=== PATIENT | female | born 1945 | race Caucasian/White ===

== ENCOUNTER 2017-12-26 10:56 | Inpatient (IN) | payer MEDICARE ==
[~2017-12-26] VITALS: Ht 157.5 cm; Wt 77.1 kg
[~2017-12-26 10:56] MED LIST: AMLO10 PO; ASPI325 PO; ATOR80 PO; DOCU100 PO; METO25 PO; Novolin R100 UNIT/M SC
[2017-12-26 11:53] LABS: Influenza A Negative (NEGATIVE); Influenza B Negative (NEGATIVE)
[2017-12-26 12:40] LABS: Chloride (POC) 98 mmol/L (98-108); Creatinine (POC) 0.9 mg/dL (0.6-1.0); Glucose (ISTAT POC) 147 mg/dL (70-99); Hemoglobin (POC) 15.3 g/dL (12.0-16.0); Potassium (POC) 3.2 mmol/L (3.5-5.5); Sodium (POC) 137 mmol/L (135-148); Total CO2 (POC) 27 mmol/L (21-32)
[2017-12-26 12:42] LABS: BASOPHILS ABSOLUTE AUTO 0.01 K/mm3 (0.00-0.23); BASOPHILS PERCENT AUTO 0 % (0-2); EOSINOPHILS ABSOLUTE AUTO 0.01 K/mm3 (0.00-0.68); EOSINOPHILS PERCENT AUTO 0 % (0-6); Hematocrit 43.6 % (33.0-51.0); Hemoglobin 15.2 g/dL (11.5-16.0); IMMATURE GRAN ABSOLUTE AUTO 0.06 K/mm3 (0.00-0.10); IMMATURE GRAN PERCENT AUTO 0 % (0-1); LYMPHOCYTES ABSOLUTE AUTO 0.64 K/mm3 (0.84-5.20); LYMPHOCYTES PERCENT AUTO 5 % (21-46); MONOCYTES ABSOLUTE AUTO 0.49 K/mm3 (0.16-1.47); MONOCYTES PERCENT AUTO 4 % (4-13); Mean Corpuscular HGB 31.7 pg (26.0-34.0); Mean Corpuscular HGB Conc 34.9 g/dL (31.5-36.5); Mean Corpuscular Volume 91 fL (80-100); Mean Platelet Volume 10.6 fL (9.1-12.4); NEUTROPHILS ABSOLUTE AUTO 12.23 K/mm3 (1.96-9.15); NEUTROPHILS PERCENT AUTO 91 % (41-73); Platelet Count 175 K/mm3 (150-400); RDW Coefficient Variation 12.6 % (11.7-14.2); RDW Standard Deviation 41.7 fL (35.1-46.3); Red Blood Cell Count 4.79 M/mm3 (3.80-5.20); White Blood Cell Count 13.44 K/mm3 (4.00-11.30)
[2017-12-26 13:05] LABS: Alanine Aminotransfer (ALT/SGP 177 U/L (12-78); Albumin, Blood 2.9 g/dL (3.4-5.0); Albumin/Globulin Ratio 0.6 (0.8-1.8); Alk Phos 115 U/L (50-136); Anion Gap 10 mmol/L (6-16); Aspartate Aminotrans (AST/SGOT 168 U/L (12-37); Bilirubin, Total 5.8 mg/dL (0.1-1.0); Blood Urea Nitrogen 17 mg/dL (8-24); CO2, Blood 27 mmol/L (21-32); Calcium, Blood 8.8 mg/dL (8.5-10.1); Chloride, Blood 99 mmol/L (98-108); Creatinine, Blood 0.85 mg/dL (0.40-1.00); Globulin, Blood 4.9 g/dL (2.2-4.0); Glomerular Filtration Rate >60 (60-); Glucose, Blood 140 mg/dL (70-99); Potassium, Blood 3.2 mmol/L (3.5-5.5); Sodium, Blood 136 mmol/L (136-145); Total Protein, Blood 7.8 g/dL (6.4-8.2)
[2017-12-26 13:19] LABS: Bicarbonate Venous 27.5 mmol/L (24.0-30.0); PCO2 Venous 32.9 mmHg (38-42); PO2 Venous 191 mmHg (38-42); pH Blood Venous 7.51 (7.34-7.37)
[2017-12-26 13:24] LABS: Source, Urine Catheter
[2017-12-26 13:25] LABS: International Normalized Ratio 1.22; Prothrombin Time Results 12.8 Sec (9.7-11.5)
[2017-12-26 13:46] LABS: Blood, Urine 5+ (Neg); Color, Urine Brown (P-Yellow); Glucose Qualitative, Urine 1+ (Neg); Ketones, Urine 1+ (Neg); Leukocyte Esterase, Urine 1+ (Neg); Nitrite, Urine Pos (Neg); Protein, Urine 3+ (Neg); Urobilinogen, Urine 4+ (Normal)
[2017-12-26 13:54] LABS: Bilirubin, Urine 2+ (Neg)
[2017-12-26 13:55] LABS: Appearance, Urine Hazy (Clear)
[2017-12-26 13:56] LABS: Bacteria Mod /hpf; Squamous Epithelial Cells Few /hpf (Few)
[2017-12-27 04:43] LABS: BASOPHILS ABSOLUTE AUTO 0.02 K/mm3 (0.00-0.23); BASOPHILS PERCENT AUTO 0 % (0-2); EOSINOPHILS ABSOLUTE AUTO 0.07 K/mm3 (0.00-0.68); EOSINOPHILS PERCENT AUTO 1 % (0-6); Hemoglobin 15.1 g/dL (11.5-16.0); IMMATURE GRAN ABSOLUTE AUTO 0.05 K/mm3 (0.00-0.10); IMMATURE GRAN PERCENT AUTO 1 % (0-1); LYMPHOCYTES ABSOLUTE AUTO 0.65 K/mm3 (0.84-5.20); LYMPHOCYTES PERCENT AUTO 6 % (21-46); MONOCYTES ABSOLUTE AUTO 0.51 K/mm3 (0.16-1.47); MONOCYTES PERCENT AUTO 5 % (4-13); Mean Corpuscular HGB 31.9 pg (26.0-34.0); Mean Corpuscular HGB Conc 35.1 g/dL (31.5-36.5); Mean Corpuscular Volume 91 fL (80-100); Mean Platelet Volume 10.6 fL (9.1-12.4); NEUTROPHILS ABSOLUTE AUTO 9.14 K/mm3 (1.96-9.15); NEUTROPHILS PERCENT AUTO 88 % (41-73); Platelet Count 192 K/mm3 (150-400); RDW Coefficient Variation 12.7 % (11.7-14.2); RDW Standard Deviation 41.7 fL (35.1-46.3); Red Blood Cell Count 4.74 M/mm3 (3.80-5.20); White Blood Cell Count 10.44 K/mm3 (4.00-11.30)
[2017-12-27 05:02] LABS: Anion Gap 8 mmol/L (6-16); Blood Urea Nitrogen 20 mg/dL (8-24); Bun/Creatinine Ratio 22.5 (12.0-20.0); CO2, Blood 28 mmol/L (21-32); Calcium, Blood 8.7 mg/dL (8.5-10.1); Chloride, Blood 101 mmol/L (98-108); Creatinine, Blood 0.89 mg/dL (0.40-1.00); Glomerular Filtration Rate >60 (60-); Glucose, Blood 156 mg/dL (70-99); Potassium, Blood 3.3 mmol/L (3.5-5.5); Sodium, Blood 137 mmol/L (136-145)
[2017-12-27 18:17] LABS: Albumin, Blood 2.4 g/dL (3.4-5.0); Albumin/Globulin Ratio 0.6 (0.8-1.8); Bilirubin, Direct 3.1 mg/dL (0.0-0.3); Bilirubin, Total 4.1 mg/dL (0.1-1.0); Globulin, Blood 3.9 g/dL (2.2-4.0); Thyroid Stimulating Hormone 1.67 uIU/mL (0.360-4.800); Total Protein, Blood 6.3 g/dL (6.4-8.2)
[2017-12-28 07:43] LABS: BASOPHILS ABSOLUTE AUTO 0.02 K/mm3 (0.00-0.23); BASOPHILS PERCENT AUTO 0 % (0-2); EOSINOPHILS ABSOLUTE AUTO 0.19 K/mm3 (0.00-0.68); EOSINOPHILS PERCENT AUTO 3 % (0-6); Hematocrit 36.8 % (33.0-51.0); Hemoglobin 12.8 g/dL (11.5-16.0); IMMATURE GRAN ABSOLUTE AUTO 0.03 K/mm3 (0.00-0.10); IMMATURE GRAN PERCENT AUTO 1 % (0-1); LYMPHOCYTES ABSOLUTE AUTO 1.02 K/mm3 (0.84-5.20); LYMPHOCYTES PERCENT AUTO 16 % (21-46); MONOCYTES ABSOLUTE AUTO 0.41 K/mm3 (0.16-1.47); MONOCYTES PERCENT AUTO 6 % (4-13); Mean Corpuscular HGB 31.5 pg (26.0-34.0); Mean Corpuscular HGB Conc 34.8 g/dL (31.5-36.5); Mean Corpuscular Volume 91 fL (80-100); Mean Platelet Volume 10.7 fL (9.1-12.4); NEUTROPHILS ABSOLUTE AUTO 4.81 K/mm3 (1.96-9.15); NEUTROPHILS PERCENT AUTO 74 % (41-73); Platelet Count 163 K/mm3 (150-400); RDW Coefficient Variation 12.5 % (11.7-14.2); RDW Standard Deviation 41.2 fL (35.1-46.3); Red Blood Cell Count 4.06 M/mm3 (3.80-5.20); White Blood Cell Count 6.48 K/mm3 (4.00-11.30)
[2017-12-28 08:03] LABS: Alanine Aminotransfer (ALT/SGP 132 U/L (12-78); Albumin, Blood 2.4 g/dL (3.4-5.0); Albumin/Globulin Ratio 0.5 (0.8-1.8); Alk Phos 127 U/L (50-136); Anion Gap 8 mmol/L (6-16); Aspartate Aminotrans (AST/SGOT 124 U/L (12-37); Blood Urea Nitrogen 21 mg/dL (8-24); Bun/Creatinine Ratio 25.2 (12.0-20.0); CO2, Blood 27 mmol/L (21-32); Calcium, Blood 8.4 mg/dL (8.5-10.1); Chloride, Blood 106 mmol/L (98-108); Creatinine, Blood 0.83 mg/dL (0.40-1.00); Globulin, Blood 4.4 g/dL (2.2-4.0); Glomerular Filtration Rate >60 (60-); Glucose, Blood 117 mg/dL (70-99); Potassium, Blood 3.3 mmol/L (3.5-5.5); Sodium, Blood 141 mmol/L (136-145); Total Protein, Blood 6.8 g/dL (6.4-8.2)
[2017-12-28 16:58] LABS: RNP/SM Ab IgG <0.2 AI (<1.0)
[2017-12-29 05:35] LABS: BASOPHILS ABSOLUTE AUTO 0.02 K/mm3 (0.00-0.23); BASOPHILS PERCENT AUTO 0 % (0-2); EOSINOPHILS PERCENT AUTO 5 % (0-6); Hematocrit 37.4 % (33.0-51.0); Hemoglobin 13.2 g/dL (11.5-16.0); IMMATURE GRAN ABSOLUTE AUTO 0.02 K/mm3 (0.00-0.10); IMMATURE GRAN PERCENT AUTO 0 % (0-1); LYMPHOCYTES ABSOLUTE AUTO 1.24 K/mm3 (0.84-5.20); LYMPHOCYTES PERCENT AUTO 21 % (21-46); MONOCYTES ABSOLUTE AUTO 0.51 K/mm3 (0.16-1.47); MONOCYTES PERCENT AUTO 9 % (4-13); Mean Corpuscular HGB 31.7 pg (26.0-34.0); Mean Corpuscular HGB Conc 35.3 g/dL (31.5-36.5); Mean Corpuscular Volume 90 fL (80-100); Mean Platelet Volume 10.9 fL (9.1-12.4); NEUTROPHILS ABSOLUTE AUTO 3.93 K/mm3 (1.96-9.15); NEUTROPHILS PERCENT AUTO 65 % (41-73); Platelet Count 174 K/mm3 (150-400); RDW Coefficient Variation 12.6 % (11.7-14.2); RDW Standard Deviation 41.4 fL (35.1-46.3); Red Blood Cell Count 4.17 M/mm3 (3.80-5.20); White Blood Cell Count 6.02 K/mm3 (4.00-11.30)
[2017-12-29 06:00] LABS: Alanine Aminotransfer (ALT/SGP 123 U/L (12-78); Albumin, Blood 2.4 g/dL (3.4-5.0); Albumin/Globulin Ratio 0.5 (0.8-1.8); Alk Phos 150 U/L (50-136); Anion Gap 9 mmol/L (6-16); Aspartate Aminotrans (AST/SGOT 106 U/L (12-37); Blood Urea Nitrogen 19 mg/dL (8-24); Bun/Creatinine Ratio 27.1 (12.0-20.0); CO2, Blood 25 mmol/L (21-32); Calcium, Blood 8.4 mg/dL (8.5-10.1); Chloride, Blood 107 mmol/L (98-108); Globulin, Blood 4.4 g/dL (2.2-4.0); Glomerular Filtration Rate >60 (60-); Glucose, Blood 179 mg/dL (70-99); Potassium, Blood 3.5 mmol/L (3.5-5.5); Sodium, Blood 141 mmol/L (136-145); Total Protein, Blood 6.8 g/dL (6.4-8.2)
[2017-12-29] MEDS ORDERED: CEFP200 PO (11:22)
[2017-12-29] MEDS ORDERED: HYDRA25 PO (11:22)
[2017-12-29] MEDS ORDERED: LEVEMIR FL100 UNIT/1 SC (11:23)
[2017-12-30 11:04] LABS: Antinuclear Antibody Screen Positive (Negative)
[2017-12-30 12:18] LABS: Ceruloplasmin 25.2 mg/dL (19.0-39.0)
[2017-12-31 05:37] LABS: C3 137 mg/dL
[2018-01-01 11:20] LABS: ANA Pattern Speckled
[2018-01-02 06:10] LABS: CK BB 0 % (0); CK MB 0 % (0-3); CK MM 100 % (97-100)
== END 2017-12-29 14:02 | disposition home or self-care (01) | DRG 871 ==
LOC: ER 10:56 → MEDS 15:37 → ENPENDDIS 12-29 10:47 → MEDS 12-29 14:02
PROVIDERS: Hospitalist; Internal Medicine; Physician Assistant
DX: A41.9 Sepsis, unspecified organism (principal); G93.40 Encephalopathy, unspecified; E11.9 Type 2 diabetes mellitus without complications; K74.60 Unspecified cirrhosis of liver; N39.0 Urinary tract infection, site not specified; E78.5 Hyperlipidemia, unspecified; I10 Essential (primary) hypertension; I25.2 Old myocardial infarction; Z86.73 Personal history of transient ischemic attack (TIA), and cerebral infarction without residual deficits; Z79.82 Long term (current) use of aspirin; Z79.4 Long term (current) use of insulin; Z79.899 Other long term (current) drug therapy
CPT/HCPCS: 36415; 71046; 72131; 74176; 76705; 80047; 80048; 80053; 80076; 81001; 82140; 82390; 82550; 82552; 82728; 82803; 82947; 83605; 83690; 83880; 84443; 84484; 85014; 85025; 85610; 85651; 86038; 86039; 86160; 86225; 86235; 87040; 87086; 87804; 93005; 93010; 96361; 96365; 96375; 99285; C1751; C9113; J0696; J1815; J1956; J3010; P9612

== ENCOUNTER 2018-02-12 10:52 | Inpatient (IN) | payer MEDICARE ==
[~2018-02-12] VITALS: Ht 157.5 cm; Wt 93.7 kg
[~2018-02-12 10:52] MED LIST changes: +ATOR40TA PO; -ATOR80 PO; +CEFP200 PO; +HYDRA25 PO; +LEVEMIR FL100 UNIT/1 SC
[2018-02-12] MEDS ORDERED: Zestril40 MG PO (11:29)
[2018-02-12 11:43] LABS: BASOPHILS ABSOLUTE AUTO 0.09 K/mm3 (0.00-0.23); BASOPHILS PERCENT AUTO 1 % (0-2); EOSINOPHILS ABSOLUTE AUTO 0.22 K/mm3 (0.00-0.68); EOSINOPHILS PERCENT AUTO 1 % (0-6); Hemoglobin 15.6 g/dL (11.5-16.0); IMMATURE GRAN ABSOLUTE AUTO 0.06 K/mm3 (0.00-0.10); IMMATURE GRAN PERCENT AUTO 0 % (0-1); LYMPHOCYTES ABSOLUTE AUTO 2.17 K/mm3 (0.84-5.20); LYMPHOCYTES PERCENT AUTO 14 % (21-46); MONOCYTES ABSOLUTE AUTO 0.98 K/mm3 (0.16-1.47); MONOCYTES PERCENT AUTO 6 % (4-13); Mean Corpuscular HGB 32.3 pg (26.0-34.0); Mean Corpuscular HGB Conc 35.5 g/dL (31.5-36.5); Mean Corpuscular Volume 91 fL (80-100); Mean Platelet Volume 10.4 fL (9.1-12.4); NEUTROPHILS ABSOLUTE AUTO 12.25 K/mm3 (1.96-9.15); NEUTROPHILS PERCENT AUTO 78 % (41-73); Platelet Count 292 K/mm3 (150-400); RDW Coefficient Variation 13.2 % (11.7-14.2); RDW Standard Deviation 43.5 fL (35.1-46.3); Red Blood Cell Count 4.83 M/mm3 (3.80-5.20); White Blood Cell Count 15.77 K/mm3 (4.00-11.30)
[2018-02-12 11:55] LABS: International Normalized Ratio 1.04; Prothrombin Time Results 10.8 Sec (9.7-11.5)
[2018-02-12 12:09] LABS: Alanine Aminotransfer (ALT/SGP 25 U/L (12-78); Albumin, Blood 3.2 g/dL (3.4-5.0); Albumin/Globulin Ratio 0.6 (0.8-1.8); Alk Phos 101 U/L (50-136); Anion Gap 7 mmol/L (6-16); Aspartate Aminotrans (AST/SGOT 31 U/L (12-37); Bilirubin, Total 1.6 mg/dL (0.1-1.0); Blood Urea Nitrogen 33 mg/dL (8-24); Bun/Creatinine Ratio 37.7 (12.0-20.0); CO2, Blood 26 mmol/L (21-32); Calcium, Blood 9.2 mg/dL (8.5-10.1); Chloride, Blood 106 mmol/L (98-108); Creatinine, Blood 0.88 mg/dL (0.40-1.00); Glomerular Filtration Rate >60 (60-); Glucose, Blood 148 mg/dL (70-99); Potassium, Blood 3.2 mmol/L (3.5-5.5); Sodium, Blood 139 mmol/L (136-145); Total Protein, Blood 8.2 g/dL (6.4-8.2)
[2018-02-13 05:56] LABS: BASOPHILS ABSOLUTE AUTO 0.06 K/mm3 (0.00-0.23); BASOPHILS PERCENT AUTO 1 % (0-2); EOSINOPHILS ABSOLUTE AUTO 0.45 K/mm3 (0.00-0.68); EOSINOPHILS PERCENT AUTO 4 % (0-6); Hematocrit 39.1 % (33.0-51.0); Hemoglobin 13.6 g/dL (11.5-16.0); IMMATURE GRAN ABSOLUTE AUTO 0.03 K/mm3 (0.00-0.10); IMMATURE GRAN PERCENT AUTO 0 % (0-1); LYMPHOCYTES ABSOLUTE AUTO 2.18 K/mm3 (0.84-5.20); LYMPHOCYTES PERCENT AUTO 18 % (21-46); MONOCYTES PERCENT AUTO 8 % (4-13); Mean Corpuscular HGB 32.2 pg (26.0-34.0); Mean Corpuscular HGB Conc 34.8 g/dL (31.5-36.5); Mean Corpuscular Volume 93 fL (80-100); Mean Platelet Volume 10.8 fL (9.1-12.4); NEUTROPHILS ABSOLUTE AUTO 8.52 K/mm3 (1.96-9.15); NEUTROPHILS PERCENT AUTO 70 % (41-73); Platelet Count 237 K/mm3 (150-400); RDW Coefficient Variation 13.3 % (11.7-14.2); RDW Standard Deviation 45.1 fL (35.1-46.3); Red Blood Cell Count 4.22 M/mm3 (3.80-5.20); White Blood Cell Count 12.24 K/mm3 (4.00-11.30)
[2018-02-13 06:22] LABS: Albumin, Blood 2.6 g/dL (3.4-5.0); Albumin/Globulin Ratio 0.6 (0.8-1.8); Bun/Creatinine Ratio 35.8 (12.0-20.0); Calcium, Blood 8.6 mg/dL (8.5-10.1); Creatinine, Blood 1.06 mg/dL (0.40-1.00); Globulin, Blood 4.3 g/dL (2.2-4.0); Potassium, Blood 3.6 mmol/L (3.5-5.5); Total Protein, Blood 6.9 g/dL (6.4-8.2)
[2018-02-13 06:30] LABS: Thyroid Stimulating Hormone 1.32 uIU/mL (0.360-4.800)
[2018-02-15] MEDS ORDERED: Tylenol325 MG PO (10:57)
[2018-02-15] MEDS ORDERED: Ducodyl5 MG PO (11:01)
[2018-02-15] MEDS ORDERED: CLOP75 PO (11:01)
[2018-02-15] MEDS ORDERED: MIRALAX17 GM PO (11:02)
[2018-02-15] MEDS ORDERED: PANT40 PO (11:02)
[2018-02-15] MEDS ORDERED: Novolog Fl100 UNIT/1 SC (11:05)
[2018-02-15] MEDS ORDERED: MILK OF MAG PO (11:11)
== END 2018-02-16 14:12 | DRG 65 ==
LOC: ER 10:52 → MEDS 13:04 → ENPENDDIS 02-15 10:00 → MEDS 02-16 14:12
PROVIDERS: Emergency Medicine; Internal Medicine
DX: I63.9 Cerebral infarction, unspecified (principal); G81.91 Hemiplegia, unspecified affecting right dominant side; I10 Essential (primary) hypertension; I65.29 Occlusion and stenosis of unspecified carotid artery; I25.10 Atherosclerotic heart disease of native coronary artery without angina pectoris; E11.9 Type 2 diabetes mellitus without complications; E78.5 Hyperlipidemia, unspecified; E66.01 Morbid (severe) obesity due to excess calories; Z68.37 Body mass index [BMI] 37.0-37.9, adult; Z86.73 Personal history of transient ischemic attack (TIA), and cerebral infarction without residual deficits; I25.2 Old myocardial infarction; Z79.82 Long term (current) use of aspirin; Z79.4 Long term (current) use of insulin; Z79.899 Other long term (current) drug therapy
CPT/HCPCS: 36415; 70450; 70496; 70498; 73502; 80053; 82947; 83036; 84443; 85025; 85610; 92610; 93005; 93010; 93306; 97110; 97112; 97162; 97166; 97530; 97535; 99285; G8978; G8979; G8987; G8988; G8996; G8997; G8998; J1650; J1815; J1817; Q9967

== ENCOUNTER 2018-04-25 09:04 | Inpatient (IN) | payer OTHER, MEDICARE ==
[~2018-04-25] VITALS: Ht 157.5 cm; Wt 87.9 kg
[~2018-04-25 09:04] MED LIST changes: -ATOR40TA PO; +ATOR80 PO; +CLOP75 PO; +Ducodyl5 MG PO; +MILK OF MAG PO; +MIRALAX17 GM PO; +Novolog Fl100 UNIT/1 SC; +PANT40 PO; +Tylenol325 MG PO; +Zestril40 MG PO
[2018-04-25 10:15] LABS: BASOPHILS ABSOLUTE AUTO 0.05 K/mm3 (0.00-0.23); BASOPHILS PERCENT AUTO 0 % (0-2); EOSINOPHILS ABSOLUTE AUTO 0.18 K/mm3 (0.00-0.68); EOSINOPHILS PERCENT AUTO 2 % (0-6); Hematocrit 33.9 % (33.0-51.0); Hemoglobin 11.7 g/dL (11.5-16.0); IMMATURE GRAN ABSOLUTE AUTO 0.05 K/mm3 (0.00-0.10); IMMATURE GRAN PERCENT AUTO 0 % (0-1); LYMPHOCYTES ABSOLUTE AUTO 1.65 K/mm3 (0.84-5.20); LYMPHOCYTES PERCENT AUTO 13 % (21-46); MONOCYTES PERCENT AUTO 9 % (4-13); Mean Corpuscular HGB 33.1 pg (26.0-34.0); Mean Corpuscular HGB Conc 34.5 g/dL (31.5-36.5); Mean Corpuscular Volume 96 fL (80-100); Mean Platelet Volume 10.4 fL (9.1-12.4); NEUTROPHILS ABSOLUTE AUTO 9.28 K/mm3 (1.96-9.15); NEUTROPHILS PERCENT AUTO 75 % (41-73); Platelet Count 279 K/mm3 (150-400); RDW Coefficient Variation 13.4 % (11.7-14.2); RDW Standard Deviation 47.1 fL (35.1-46.3); Red Blood Cell Count 3.54 M/mm3 (3.80-5.20); White Blood Cell Count 12.31 K/mm3 (4.00-11.30)
[2018-04-25 10:27] LABS: Alanine Aminotransfer (ALT/SGP 31 U/L (12-78); Albumin, Blood 3.1 g/dL (3.4-5.0); Albumin/Globulin Ratio 0.7 (0.8-1.8); Alk Phos 94 U/L (50-136); Anion Gap 8 mmol/L (6-16); Aspartate Aminotrans (AST/SGOT 21 U/L (12-37); Blood Urea Nitrogen 26 mg/dL (8-24); Bun/Creatinine Ratio 27.9 (12.0-20.0); CO2, Blood 24 mmol/L (21-32); Calcium, Blood 8.9 mg/dL (8.5-10.1); Chloride, Blood 106 mmol/L (98-108); Creatinine, Blood 0.93 mg/dL (0.40-1.00); Globulin, Blood 4.2 g/dL (2.2-4.0); Glomerular Filtration Rate >60 (60-); Glucose, Blood 166 mg/dL (70-99); Potassium, Blood 4.3 mmol/L (3.5-5.5); Sodium, Blood 138 mmol/L (136-145); Total Protein, Blood 7.3 g/dL (6.4-8.2)
[2018-04-25 11:38] LABS: Source, Urine Catheter
[2018-04-25 11:59] LABS: Bilirubin, Urine Neg (Neg); Blood, Urine 2+ (Neg); Glucose Qualitative, Urine Neg (Neg); Ketones, Urine Neg (Neg); Leukocyte Esterase, Urine 3+ (Neg); Nitrite, Urine Neg (Neg); Protein, Urine 1+ (Neg); Specific Gravity, Urine 1.015 (1.003-1.022); Urobilinogen, Urine NORM (Normal)
[2018-04-25 12:13] LABS: Appearance, Urine Hazy (Clear); Color, Urine Yellow (P-Yellow)
[2018-04-25 12:14] LABS: White Blood Cells, Urine TNTC /hpf (0-5)
[2018-04-25 12:15] LABS: Bacteria Mod /hpf; Squamous Epithelial Cells Few /hpf (Few)
[2018-04-25] MEDS ORDERED: HYDRA25 PO (12:46)
[2018-04-25] MEDS ORDERED: NITR100CA PO (12:47)
[2018-04-25] MEDS ORDERED: Lopressor 25 mg25 MG PO (12:49)
[2018-04-25] MEDS ORDERED: INSDET100 SC (12:57)
[2018-04-25 13:01] LABS: International Normalized Ratio 1.02; Prothrombin Time Results 10.5 Sec (9.7-11.5)
[2018-04-26 04:21] LABS: Bun/Creatinine Ratio 30.5 (12.0-20.0); Calcium, Blood 8.2 mg/dL (8.5-10.1); Creatinine, Blood 1.05 mg/dL (0.40-1.00); Potassium, Blood 4.8 mmol/L (3.5-5.5)
[2018-04-26 05:15] LABS: BASOPHILS ABSOLUTE AUTO 0.05 K/mm3 (0.00-0.23); BASOPHILS PERCENT AUTO 1 % (0-2); EOSINOPHILS ABSOLUTE AUTO 0.19 K/mm3 (0.00-0.68); EOSINOPHILS PERCENT AUTO 2 % (0-6); Hematocrit 30.7 % (33.0-51.0); Hemoglobin 10.4 g/dL (11.5-16.0); IMMATURE GRAN ABSOLUTE AUTO 0.06 K/mm3 (0.00-0.10); IMMATURE GRAN PERCENT AUTO 1 % (0-1); LYMPHOCYTES ABSOLUTE AUTO 1.65 K/mm3 (0.84-5.20); LYMPHOCYTES PERCENT AUTO 16 % (21-46); MONOCYTES ABSOLUTE AUTO 0.93 K/mm3 (0.16-1.47); MONOCYTES PERCENT AUTO 9 % (4-13); Mean Corpuscular HGB 33.2 pg (26.0-34.0); Mean Corpuscular HGB Conc 33.9 g/dL (31.5-36.5); Mean Corpuscular Volume 98 fL (80-100); Mean Platelet Volume 10.4 fL (9.1-12.4); NEUTROPHILS ABSOLUTE AUTO 7.38 K/mm3 (1.96-9.15); NEUTROPHILS PERCENT AUTO 72 % (41-73); Platelet Count 221 K/mm3 (150-400); RDW Coefficient Variation 13.6 % (11.7-14.2); RDW Standard Deviation 48.6 fL (35.1-46.3); Red Blood Cell Count 3.13 M/mm3 (3.80-5.20); White Blood Cell Count 10.26 K/mm3 (4.00-11.30)
[2018-04-27 04:04] LABS: Prothrombin Time Results 10.3 Sec (9.7-11.5)
[2018-04-27 07:48] LABS: Anion Gap 6 mmol/L (6-16); Blood Urea Nitrogen 20 mg/dL (8-24); CO2, Blood 25 mmol/L (21-32); Calcium, Blood 8.5 mg/dL (8.5-10.1); Chloride, Blood 107 mmol/L (98-108); Creatinine, Blood 0.84 mg/dL (0.40-1.00); Glomerular Filtration Rate >60 (60-); Glucose, Blood 89 mg/dL (70-99); Potassium, Blood 4.2 mmol/L (3.5-5.5); Sodium, Blood 138 mmol/L (136-145)
[2018-04-28 03:49] LABS: BASOPHILS ABSOLUTE AUTO 0.05 K/mm3 (0.00-0.23); BASOPHILS PERCENT AUTO 1 % (0-2); EOSINOPHILS ABSOLUTE AUTO 0.28 K/mm3 (0.00-0.68); EOSINOPHILS PERCENT AUTO 3 % (0-6); Hematocrit 24.3 % (33.0-51.0); Hemoglobin 8.4 g/dL (11.5-16.0); IMMATURE GRAN ABSOLUTE AUTO 0.06 K/mm3 (0.00-0.10); IMMATURE GRAN PERCENT AUTO 1 % (0-1); LYMPHOCYTES PERCENT AUTO 16 % (21-46); MONOCYTES ABSOLUTE AUTO 0.97 K/mm3 (0.16-1.47); MONOCYTES PERCENT AUTO 10 % (4-13); Mean Corpuscular HGB 33.5 pg (26.0-34.0); Mean Corpuscular HGB Conc 34.6 g/dL (31.5-36.5); Mean Corpuscular Volume 97 fL (80-100); Mean Platelet Volume 10.6 fL (9.1-12.4); NEUTROPHILS ABSOLUTE AUTO 6.63 K/mm3 (1.96-9.15); NEUTROPHILS PERCENT AUTO 70 % (41-73); Platelet Count 177 K/mm3 (150-400); RDW Coefficient Variation 13.1 % (11.7-14.2); RDW Standard Deviation 46.1 fL (35.1-46.3); Red Blood Cell Count 2.51 M/mm3 (3.80-5.20); White Blood Cell Count 9.49 K/mm3 (4.00-11.30)
[2018-04-28 04:09] LABS: Anion Gap 8 mmol/L (6-16); Blood Urea Nitrogen 11 mg/dL (8-24); CO2, Blood 24 mmol/L (21-32); Calcium, Blood 8.3 mg/dL (8.5-10.1); Chloride, Blood 106 mmol/L (98-108); Creatinine, Blood 0.69 mg/dL (0.40-1.00); Glomerular Filtration Rate >60 (60-); Glucose, Blood 138 mg/dL (70-99); Sodium, Blood 138 mmol/L (136-145)
[2018-04-29 05:26] LABS: BASOPHILS ABSOLUTE AUTO 0.05 K/mm3 (0.00-0.23); BASOPHILS PERCENT AUTO 1 % (0-2); EOSINOPHILS ABSOLUTE AUTO 0.27 K/mm3 (0.00-0.68); EOSINOPHILS PERCENT AUTO 3 % (0-6); Hematocrit 25.1 % (33.0-51.0); Hemoglobin 8.8 g/dL (11.5-16.0); IMMATURE GRAN ABSOLUTE AUTO 0.06 K/mm3 (0.00-0.10); IMMATURE GRAN PERCENT AUTO 1 % (0-1); LYMPHOCYTES ABSOLUTE AUTO 1.66 K/mm3 (0.84-5.20); LYMPHOCYTES PERCENT AUTO 17 % (21-46); MONOCYTES ABSOLUTE AUTO 0.85 K/mm3 (0.16-1.47); MONOCYTES PERCENT AUTO 9 % (4-13); Mean Corpuscular HGB 33.7 pg (26.0-34.0); Mean Corpuscular HGB Conc 35.1 g/dL (31.5-36.5); Mean Corpuscular Volume 96 fL (80-100); Mean Platelet Volume 10.3 fL (9.1-12.4); NEUTROPHILS ABSOLUTE AUTO 6.75 K/mm3 (1.96-9.15); NEUTROPHILS PERCENT AUTO 70 % (41-73); Platelet Count 206 K/mm3 (150-400); RDW Coefficient Variation 13.3 % (11.7-14.2); RDW Standard Deviation 46.2 fL (35.1-46.3); Red Blood Cell Count 2.61 M/mm3 (3.80-5.20); White Blood Cell Count 9.64 K/mm3 (4.00-11.30)
== END 2018-04-30 17:30 | DRG 481 ==
LOC: ER 09:04 → SURS 09:05
PROVIDERS: Emergency Medicine; Internal Medicine; Orthopaedic Surgery
PROC: 0QS634Z Reposition Right Upper Femur with Internal Fixation Device, Percutaneous Approach (ICD-10-PCS; principal; 2018-04-25)
DX: S72.141A Displaced intertrochanteric fracture of right femur, initial encounter for closed fracture (principal); N39.0 Urinary tract infection, site not specified; I69.354 Hemiplegia and hemiparesis following cerebral infarction affecting left non-dominant side; W19.XXXA Unspecified fall, initial encounter; E11.9 Type 2 diabetes mellitus without complications; Z79.4 Long term (current) use of insulin; I10 Essential (primary) hypertension; E78.5 Hyperlipidemia, unspecified; B96.20 Unspecified Escherichia coli [E. coli] as the cause of diseases classified elsewhere; I65.22 Occlusion and stenosis of left carotid artery; R09.02 Hypoxemia
CPT/HCPCS: 36415; 51702; 70450; 71045; 73502; 80048; 80053; 81001; 82947; 85025; 85610; 86900; 86901; 87086; 93005; 93010; 94760; 94762; 96374; 96375; 97110; 97161; 97167; 97530; 97535; 99285; C1713; C1769; G8978; G8979; G8987; G8988; J0690; J0696; J1650; J1815; J1817; J2370; J2405; J2710; J3010; J7030; J7120

== ENCOUNTER → 2018-10-23 | Outpatient (CLI) | payer MEDICARE, OTHER ==
[~2018-10-23] MED LIST changes: +CEPH500 PO; +GABA100 PO; +INSDET100 SC; +Lopressor 25 mg25 MG PO; +NITR100CA PO; +OLAN2.5 PO; +OSELTAMIVIR PHO75 MG PO; +OXYC1TAB11 PO; +Zanaflex2 M1 PO
== END | disposition home or self-care (01) ==
LOC: LAB UVN 19:30 → EDSTATUS 10-27 11:14
DX: S21.001A Unspecified open wound of right breast, initial encounter (principal)
CPT/HCPCS: 87070; 87147; 87205

== ENCOUNTER 2018-11-22 21:27 | Emergency (ER) | payer MEDICARE, OTHER ==
[~2018-11-22] VITALS: Ht 157.5 cm; Wt 99.8 kg
[~2018-11-22 21:27] MED LIST changes: -CEPH500 PO; -GABA100 PO; -OLAN2.5 PO; -OSELTAMIVIR PHO75 MG PO; -OXYC1TAB11 PO; -Zanaflex2 M1 PO
[2018-11-22] MEDS ORDERED: OXYC1TAB11 PO (21:40)
[2018-11-22] MEDS ORDERED: Zanaflex2 M1 PO (21:41)
[2018-11-22] MEDS ORDERED: OLAN2.5 PO (21:43)
[2018-11-22] MEDS ORDERED: GABA100 PO (21:43)
[2018-11-22 21:56] LABS: BASOPHILS ABSOLUTE AUTO 0.05 K/mm3 (0.00-0.23); BASOPHILS PERCENT AUTO 1 % (0-2); EOSINOPHILS ABSOLUTE AUTO 0.09 K/mm3 (0.00-0.68); EOSINOPHILS PERCENT AUTO 1 % (0-6); Hematocrit 36.8 % (33.0-51.0); Hemoglobin 12.3 g/dL (11.5-16.0); IMMATURE GRAN ABSOLUTE AUTO 0.04 K/mm3 (0.00-0.10); IMMATURE GRAN PERCENT AUTO 0 % (0-1); LYMPHOCYTES ABSOLUTE AUTO 1.31 K/mm3 (0.84-5.20); LYMPHOCYTES PERCENT AUTO 13 % (21-46); MONOCYTES ABSOLUTE AUTO 0.95 K/mm3 (0.16-1.47); MONOCYTES PERCENT AUTO 10 % (4-13); Mean Corpuscular HGB 32.3 pg (26.0-34.0); Mean Corpuscular HGB Conc 33.4 g/dL (31.5-36.5); Mean Corpuscular Volume 97 fL (80-100); Mean Platelet Volume 10.8 fL (9.1-12.4); NEUTROPHILS PERCENT AUTO 76 % (41-73); Platelet Count 191 K/mm3 (150-400); RDW Coefficient Variation 12.1 % (11.7-14.2); RDW Standard Deviation 43.4 fL (35.1-46.3); Red Blood Cell Count 3.81 M/mm3 (3.80-5.20); White Blood Cell Count 10.04 K/mm3 (4.00-11.30)
[2018-11-22 22:06] LABS: Source, Urine Catheter
[2018-11-22 22:09] LABS: Alanine Aminotransfer (ALT/SGP 12 U/L (12-78); Albumin/Globulin Ratio 0.7 (0.8-1.8); Alk Phos 87 U/L (50-136); Anion Gap 10 mmol/L (6-16); Aspartate Aminotrans (AST/SGOT 18 U/L (12-37); Blood Urea Nitrogen 25 mg/dL (8-24); Bun/Creatinine Ratio 26.9 (12.0-20.0); CO2, Blood 23 mmol/L (21-32); Calcium, Blood 8.8 mg/dL (8.5-10.1); Chloride, Blood 105 mmol/L (98-108); Creatinine, Blood 0.93 mg/dL (0.40-1.00); Globulin, Blood 4.3 g/dL (2.2-4.0); Glomerular Filtration Rate >60 (60-); Glucose, Blood 142 mg/dL (70-99); Sodium, Blood 138 mmol/L (136-145); Total Protein, Blood 7.3 g/dL (6.4-8.2)
[2018-11-22 22:10] LABS: Appearance, Urine Clear (Clear); Bilirubin, Urine Neg (Neg); Blood, Urine Neg (Neg); Color, Urine Amber (P-Yellow); Glucose Qualitative, Urine Neg (Neg); Ketones, Urine 1+ (Neg); Leukocyte Esterase, Urine 1+ (Neg); Nitrite, Urine Neg (Neg); Protein, Urine 1+ (Neg); Urobilinogen, Urine 1+ (Normal)
[2018-11-22 22:15] LABS: Squamous Epithelial Cells Mod /hpf (Few)
[2018-11-22 22:16] LABS: Bacteria Many /hpf
[2018-11-22 23:05] LABS: Influenza A Positive (NEGATIVE); Influenza B Negative (NEGATIVE)
[2018-11-23] MEDS ORDERED: CEPH500 PO (00:22)
[2018-11-23] MEDS ORDERED: OSELTAMIVIR PHO75 MG PO (00:23)
== END 2018-11-23 00:45 | disposition home or self-care (01) ==
LOC: ER 21:27
PROVIDERS: Emergency Medicine
DX: J11.1 Influenza due to unidentified influenza virus with other respiratory manifestations (principal); R82.71 Bacteriuria; Z79.899 Other long term (current) drug therapy; Z79.4 Long term (current) use of insulin; E11.9 Type 2 diabetes mellitus without complications; I10 Essential (primary) hypertension; Z86.73 Personal history of transient ischemic attack (TIA), and cerebral infarction without residual deficits
CPT/HCPCS: 36415; 71046; 80053; 81001; 83605; 85025; 87040; 87086; 87804; 93005; 93010; 94640; 96361; 96365; 99284-25; J0696; J7030

== ENCOUNTER → 2019-10-02 | Outpatient (CLI) | payer MEDICARE, OTHER ==
[~2019-10-02] MED LIST changes: +ACET325 PO; +ATOR40TA PO; -ATOR80 PO; +BENADRYL25 MG PO; +CEPH500 PO; +Flagyl500 MG PO; +GABA100 PO; +LISI20 PO; +Loratadine10 MG PO; +METFORMIN HCL500 M2 PO; +MILK OF MA400 MG/5 M PO; +OLAN2.5 PO; +OSELTAMIVIR PHO75 MG PO; +OXYC1TAB11 PO; +OXYC5 PO; +PANT20 PO; -PANT40 PO; +POTCHL20ER PO; +TIZA4 PO; +Zanaflex2 M1 PO
[2019-10-02 16:55] LABS: Anion Gap 11 mmol/L (6-16); Blood Urea Nitrogen 25 mg/dL (8-24); Bun/Creatinine Ratio 31.1 (12.0-20.0); CO2, Blood 23 mmol/L (21-32); Calcium, Blood 9.4 mg/dL (8.5-10.1); Chloride, Blood 101 mmol/L (98-108); Glomerular Filtration Rate >60 (60-); Glucose, Blood 74 mg/dL (70-99); Potassium, Blood 5.6 mmol/L (3.5-5.5); Sodium, Blood 135 mmol/L (136-145)
[2019-10-02 17:48] LABS: Hematocrit 35.9 % (33.0-51.0); Mean Corpuscular HGB 32.5 pg (26.0-34.0); Mean Corpuscular HGB Conc 33.4 g/dL (31.5-36.5); Mean Corpuscular Volume 97 fL (80-100); Mean Platelet Volume 10.1 fL (9.1-12.4); Platelet Count 340 K/mm3 (150-400); RDW Coefficient Variation 11.9 % (11.7-14.2); Red Blood Cell Count 3.69 M/mm3 (3.80-5.20); White Blood Cell Count 25.56 K/mm3 (4.00-11.30)
== END | disposition home or self-care (01) ==
LOC: EDSTATUS 09:43 → LAB UVN 16:12
DX: E11.9 Type 2 diabetes mellitus without complications (principal)
CPT/HCPCS: 80048; 85027

== ENCOUNTER → 2019-10-02 | Outpatient (CLI) | payer MEDICARE, OTHER ==
[2019-10-02 15:53] LABS: Source, Urine Catheter
[2019-10-02 16:00] LABS: Bilirubin, Urine Neg (Neg); Blood, Urine 3+ (Neg); Glucose Qualitative, Urine Neg (Neg); Ketones, Urine Neg (Neg); Leukocyte Esterase, Urine 3+ (Neg); Nitrite, Urine Pos (Neg); Protein, Urine 2+ (Neg); Specific Gravity, Urine 1.015 (1.003-1.022); Urobilinogen, Urine 1+ (Normal)
[2019-10-02 16:10] LABS: Appearance, Urine Hazy (Clear); Color, Urine Yellow (P-Yellow); White Blood Cells, Urine TNTC /hpf (0-5)
[2019-10-02 16:11] LABS: Bacteria Many /hpf; Squamous Epithelial Cells Few /hpf (Few)
== END ==
LOC: EDSTATUS 09:41 → LAB UVN 15:49
DX: D72.828 Other elevated white blood cell count (principal)
CPT/HCPCS: 81001; 87077; 87086; 87186

== ENCOUNTER → 2019-10-11 | Outpatient (CLI) | payer MEDICARE, OTHER | END | disposition home or self-care (01) | LOC: LAB UVN 03:35 → EDSTATUS 15:32 | DX: E11.9 Type 2 diabetes mellitus without complications (principal) | CPT/HCPCS: 83036 ==

== ENCOUNTER 2019-10-12 11:03 | Inpatient (IN) | payer MEDICARE, OTHER ==
[~2019-10-12] VITALS: Ht 160 cm; Wt 90.3 kg
[~2019-10-12 11:03] MED LIST changes: -ACET325 PO; -BENADRYL25 MG PO; -LISI20 PO; -Loratadine10 MG PO; -METFORMIN HCL500 M2 PO; -MILK OF MA400 MG/5 M PO; -OXYC5 PO; -POTCHL20ER PO; -TIZA4 PO
[2019-10-12 11:45] LABS: Source, Urine Catheter
[2019-10-12 11:53] LABS: Bilirubin, Urine Neg (Neg); Blood, Urine Neg (Neg); Glucose Qualitative, Urine Neg (Neg); Ketones, Urine Neg (Neg); Leukocyte Esterase, Urine 2+ (Neg); Nitrite, Urine Neg (Neg); Protein, Urine 1+ (Neg); Specific Gravity, Urine 1.015 (1.003-1.022); Urobilinogen, Urine 1+ (Normal)
[2019-10-12 12:02] LABS: Appearance, Urine Clear (Clear); Color, Urine Yellow (P-Yellow)
[2019-10-12 12:04] LABS: Bacteria Few /hpf; Squamous Epithelial Cells Mod /hpf (Few)
[2019-10-12 12:50] LABS: Hematocrit 42.7 % (33.0-51.0); Mean Corpuscular HGB 32.6 pg (26.0-34.0); Mean Corpuscular HGB Conc 32.8 g/dL (31.5-36.5); Mean Corpuscular Volume 99 fL (80-100); RDW Coefficient Variation 11.9 % (11.7-14.2); RDW Standard Deviation 43.6 fL (35.1-46.3); White Blood Cell Count 21.61 K/mm3 (4.00-11.30)
[2019-10-12 12:56] LABS: Albumin, Blood 2.6 g/dL (3.4-5.0); Albumin/Globulin Ratio 0.5 (0.8-1.8); Bilirubin, Total 0.7 mg/dL (0.1-1.0); Bun/Creatinine Ratio 30.9 (12.0-20.0); Calcium, Blood 9.5 mg/dL (8.5-10.1); Creatinine, Blood 1.23 mg/dL (0.40-1.00); Potassium, Blood 4.7 mmol/L (3.5-5.5); Total Protein, Blood 7.6 g/dL (6.4-8.2)
[2019-10-12 13:23] LABS: Mean Platelet Volume 10.6 fL (9.1-12.4); Platelet Count 533 K/mm3 (150-400)
[2019-10-12 13:26] LABS: BAND PERCENT MAN 19 % (0-8); BASOPHILS PERCENT MAN 0 % (0-2); EOSINOPHILS PERCENT MAN 0 % (0-6); LYMPHOCYTES ABSOLUTE MAN 2.37 K/mm3 (0.84-5.20); LYMPHOCYTES PERCENT MAN 11 % (21-46); METAMYELOCYTE ABSOLUTE MAN 0.21 K/mm3 (0.00-0.00); METAMYELOCYTE PERCENT MAN 1 % (0-0); MONOCYTES ABSOLUTE MAN 0.21 K/mm3 (0.16-1.47); MONOCYTES PERCENT MAN 1 % (4-13); SEG NEUTROPHILS PERCENT MAN 68 % (41-73); TOTAL CELLS COUNTED 100
[2019-10-12] MEDS ORDERED: METFORMIN HCL500 M2 PO (14:06)
--- NOTE | 2019-10-12 15:50 | NUR ---
PT NEW ADMIT FROM ED. PALE, CLAMMY, ABLE TO ANSWER QUESTIONS BUT SPEECH SLURRED. BP IN 80S SYSTOLIC AT THIS TIME. HOWEVER, RESPIRATIONS 28. FLUID BOLUS RUNNING
[2019-10-12 16:35] LABS: International Normalized Ratio 1.07; Prothrombin Time Results 11.3 Sec (9.7-11.5)
--- NOTE | 2019-10-12 16:50 | NUR ---
REPEAT VITALS REVEALED WORSENING BPS AND RESPIRATIONS STILL AT 28. PT'S SPEECH BECOMING MORE SLURRED AND PT LETHARGIC BUT ROUSEABLE. CALL TO DR DELVALLE. SEE NEW ORDERS. ICU AND NURSING DOCK CLERK AWARE OF TRANSFER. SECOND PERIPHERAL LINE STARTED AND LEVOPHED RUNNING AT 3MCG/MIN. PERIPHERAL SITE FLUSHES WELL WITH NO REDNESS OR DISCOMFORT.
--- NOTE | 2019-10-12 17:51 | NUR ---
PT 1:1 IN PCU AT THIS TIME WHILE AWAITING ICU BED. LEVOPHED AT 3MCG/MIN WITH PERIPHERAL SITE FUNCTIONING WELL, NO REDNESS OR SWELLING. PT RESTING, COLOR MORE PINK, RESPIRATIONS IN HIGH 20S. 3RD LITER FLUIDS RUNNING AT THIS TIME, ANTIBIOTICS COMPLETED. 2L O2, SATTING HIGH 90S. NO ACUTE NEEDS AT THIS TIME. HR NSR WITH BBB IN 80S. IMPROVED FROM TACH UPON ARRIVAL.
--- NOTE | 2019-10-12 18:20 | NUR ---
BEDSIDE REPORT GIVEN TO DEJAH VU. LEVOPHED AT 5MCG/MIN. FLUID BOLUS OF LR RUNNING AT THIS TIME. NETWORK ANNOUNCER AWARE THAT LINE FOR PRESSORS IS NEEDED. PT TRANSFERRED VIA BED.
--- NOTE | 2019-10-12 19:27 | NUR ---
180 NOTE ... PT ADMITTED TO ICU-15 VIA BED FROM PCU. REPORT RECIEVED FROM SYMONE POND. PT IS EASILY AROUSABLE BUT IS NOT CLEAR RE ALL QUESTIONS. IS AWARE OF HER OTILIA. PT IS ON 2L NC, RR 22-26, LUNGS DIMINISHED, AND DENIES RESP. DISTRESS. ABD IS HYPOACTIVE AND C/O PAIN AND TENDERNESS T/O. THERE IS NO SHAH. THE PT HAS NO THOMAS AREA SKIN BREAKDOWN OR VISIBLE VAGINAL DRAINAGE. DR BRIDGETTE ANDREWS ARRIVED AND IS DISCUSSING POSSIBLE NEED FOR SURGERY WITH PT AND HAS ALSO SPOKE WITH THE OTILIA PT . REFLUX L.A. WAS TAKEN AND REPORTED TO DR ANDREWS. PT BP IS STABLE NOTED AND 1804 WAS ON 5MCG FROM PCU AND AT 1910 DECREASED TO 4MCG WITH NOTED BP'S.
--- NOTE | 2019-10-12 20:10 | NUR ---
ADMISSION ASSIST COMPLETED IN ICU. PATIENT TRANSFERED FROM [facility] IMCOMPLETE ASSESMENT.
--- NOTE | 2019-10-12 20:12 | NUR ---
PT TO OR @ 2000
--- NOTE | 2019-10-12 21:03 | NUR ---
10/12/192102 Emili Frank PT ON SCHEDULED ANTIBIOTICS AND RECIEVED PRIOR TO ARRIVAL TO OR.
[2019-10-12 23:58] LABS: Source, Urine Catheter
[2019-10-13 00:07] LABS: Appearance, Urine Clear (Clear); Bilirubin, Urine Neg (Neg); Blood, Urine 1+ (Neg); Color, Urine Amber (P-Yellow); Glucose Qualitative, Urine Neg (Neg); Ketones, Urine 1+ (Neg); Leukocyte Esterase, Urine 1+ (Neg); Nitrite, Urine Pos (Neg); Protein, Urine 2+ (Neg); Urobilinogen, Urine NORM (Normal)
[2019-10-13 00:13] LABS: Amorphous Mod (0-Heavy); Bacteria Mod /hpf; Red Blood Cells, Urine 0-2 /hpf (0-2); Squamous Epithelial Cells Few /hpf (Few)
[2019-10-13 04:08] LABS: Hematocrit 32.4 % (33.0-51.0); Hemoglobin 10.5 g/dL (11.5-16.0); Mean Corpuscular HGB 32.2 pg (26.0-34.0); Mean Corpuscular HGB Conc 32.4 g/dL (31.5-36.5); Mean Corpuscular Volume 99 fL (80-100); Mean Platelet Volume 10.2 fL (9.1-12.4); Platelet Count 366 K/mm3 (150-400); RDW Coefficient Variation 12.2 % (11.7-14.2); Red Blood Cell Count 3.26 M/mm3 (3.80-5.20); White Blood Cell Count 19.78 K/mm3 (4.00-11.30)
[2019-10-13 04:34] LABS: Albumin, Blood 1.9 g/dL (3.4-5.0); Albumin/Globulin Ratio 0.5 (0.8-1.8); Bilirubin, Total 0.7 mg/dL (0.1-1.0); Bun/Creatinine Ratio 33.6 (12.0-20.0); Calcium, Blood 8.3 mg/dL (8.5-10.1); Creatinine, Blood 1.13 mg/dL (0.40-1.00); Globulin, Blood 3.9 g/dL (2.2-4.0); Potassium, Blood 5.3 mmol/L (3.5-5.5); Total Protein, Blood 5.8 g/dL (6.4-8.2)
[2019-10-13 05:19] LABS: BAND PERCENT MAN 17 % (0-8); BASOPHILS PERCENT MAN 0 % (0-2); EOSINOPHILS PERCENT MAN 0 % (0-6); LYMPHOCYTES ABSOLUTE MAN 0.79 K/mm3 (0.84-5.20); LYMPHOCYTES PERCENT MAN 4 % (21-46); MONOCYTES ABSOLUTE MAN 0.79 K/mm3 (0.16-1.47); MONOCYTES PERCENT MAN 4 % (4-13); NEUTROPHILS ABSOLUTE MAN 18.19 K/mm3 (1.96-9.15); SEG NEUTROPHILS PERCENT MAN 75 % (41-73); TOTAL CELLS COUNTED 100
--- NOTE | 2019-10-13 07:15 | NUR ---
PT RECOVERED ON UNIT, WEAN 02 TO 5L NC, PAIN AT SURGICAL SITE, CONTROLLED WITH FENTANYL AND OXY. NO ACUTE EVENTS WILL CONTIUE CARE.
--- NOTE | 2019-10-13 09:31 | NUR ---
0800 NOTE... PT IS AWAKE BUT SLOW TO ANSWER QUESTIONS AND IS ONLY APPROP. TO SELF AT THIS TIME. PT IS C/O PAIN IN ABDOMEN BUT NOT ABLE TO FULLY DESCRIBE CAHARCTER OF PAIN. NO RESP DISTRESS. VS NOTED AND IVF TO BE CHANGED TO NS AT 150ML PER NEW ORDER. PT ABD DSG IS ONLY STAINED WITH DRY DRAINAGE ON LOWER DEPENDENT AREA OTHERWISE DRY. DR ANDREWS IN TO SEE AND EVALUATE PT. PT HAS ABD BINDER IN PLACE. WILL CONT NPO FOR NOW.
--- NOTE | 2019-10-13 14:32 | NUR ---
DR POP IN TO SEE AND EVALUATE PT STATUS. NO ORDER CHANGES AT THIS TIME.
--- NOTE | 2019-10-13 15:55 | NUR ---
PT LACTIC ACID CALLED AND IVF TO CONT AT 150 ML NS.
--- NOTE | 2019-10-13 18:05 | NUR ---
PT DID NOT RESPOND WELL TO FENTANYL DOSE FOR PAIN MANAGEMENT. SEVERE PAIN PRN FENT. DOSE GIVEN AND PT TOLERATED WELL. PT TEMP SL ELEVATED, BLANKET REMOVED AND PT FAN STARTED. THIS DOSE FENT. CONTROLLED THE PAIN AT THIS TIME.
[2019-10-14 04:08] LABS: Hematocrit 27.9 % (33.0-51.0); Mean Corpuscular HGB 32.4 pg (26.0-34.0); Mean Corpuscular HGB Conc 32.3 g/dL (31.5-36.5); Mean Corpuscular Volume 100 fL (80-100); Mean Platelet Volume 10.3 fL (9.1-12.4); Platelet Count 284 K/mm3 (150-400); RDW Coefficient Variation 12.4 % (11.7-14.2); RDW Standard Deviation 46.1 fL (35.1-46.3); Red Blood Cell Count 2.78 M/mm3 (3.80-5.20); White Blood Cell Count 16.38 K/mm3 (4.00-11.30)
[2019-10-14 04:23] LABS: Anion Gap 7 mmol/L (6-16); Blood Urea Nitrogen 30 mg/dL (8-24); Bun/Creatinine Ratio 39.9 (12.0-20.0); CO2, Blood 21 mmol/L (21-32); Calcium, Blood 8.4 mg/dL (8.5-10.1); Chloride, Blood 118 mmol/L (98-108); Creatinine, Blood 0.75 mg/dL (0.40-1.00); Glomerular Filtration Rate >60 (60-); Glucose, Blood 165 mg/dL (70-99); Potassium, Blood 4.2 mmol/L (3.5-5.5); Sodium, Blood 146 mmol/L (136-145)
[2019-10-14 05:39] LABS: BAND PERCENT MAN 6 % (0-8); BASOPHILS PERCENT MAN 0 % (0-2); EOSINOPHILS ABSOLUTE MAN 0.16 K/mm3 (0.00-0.68); EOSINOPHILS PERCENT MAN 1 % (0-6); LYMPHOCYTES ABSOLUTE MAN 0.16 K/mm3 (0.84-5.20); LYMPHOCYTES PERCENT MAN 1 % (21-46); MONOCYTES ABSOLUTE MAN 0.16 K/mm3 (0.16-1.47); MONOCYTES PERCENT MAN 1 % (4-13); NEUTROPHILS ABSOLUTE MAN 15.88 K/mm3 (1.96-9.15); SEG NEUTROPHILS PERCENT MAN 91 % (41-73); TOTAL CELLS COUNTED 100
--- NOTE | 2019-10-14 05:41 | NUR ---
SHIFT SUMMARY: PT ALERT AT TIMES, SPEECH IS SLURRED. MAIN COMPLAINT HAS BEEN PAIN. PT HAS RECEIVED FREQUENT FENTANYL. PT FEBRILE. 99.6 AT BEGINNING OF SHIFT AND IS CURRENTLY 99.1. LUNG SOUNDS CLEAR/DIM AT BASES. SP02 >90% ON 5L NC. PT SINUS TACH, SBP 130-140S. PT IS CURRENTLY NPO. SHAH IN PLACE DRAINING CLEAR YELLOW URINE. PT HAS MIDLINE ABD IN PLACE WITH ABD BINDER. SMALL AMT OF RED DRAINAGE ON ABD PAD AND BINDER. NO CHANGES THROUGHOUT SHIFT. SURG WOUND C/D/I. PT HAS LUANA POWERGLIDE INFUSING WITH NS AT 150ML/HR. RFA 20G IV SL.
--- NOTE | 2019-10-14 07:40 | NUR ---
ASSUMED CARE AT 0700. REPORT FROM JAYDON POND. PT RESTING IN BED. WAKES c VERBAL STIMULI, SLURRED SPEECH, DIFFICULT TO UNDERSTAND. PT INTERMITTANTLY YELLS RESPONSES WHICH ARE EASIER TO UNDERSTAND. FOLLOWS COMMANDS. PREVIOUS CVA c RIGHT SIDED DEFICITS. LUNGS DECREASED IN BASES. ABD ROUND, SOFT NON TENDER. BT HYPOACTIVE. MIDLINE INCISION, JEFF, SCANT LIGHT RED DRAINAGE ON ABD PAD. INCISION APPROXIMATED, MINIMAL REDNESS NOTED. ABD BINDER IN PLACED. PT C/O PAIN c MINIMAL MOVEMENT. REPOSITIONED FOR COMFORT. MORNING MEDS HELD FOR CONCERN FOR ASPIRATION RISK. PT UNABLE TO SIT IN POTTER POSITION D/T PAIN. SHAH IN PLACED, DRAINING TO GRAVITY. POWERGLIDE TO LUE, INFUSING s DIFFICULTY. WILL CONTINUE TO MONITOR.
--- NOTE | 2019-10-14 09:54 | NUR ---
DR DELVALLE IN TO SEE PT THIS AM. CALL PLACED TO CHITRA BINGHAM, STATES THAT PT AT BASELINE HAS NO SLURRED SPEECH. A&OX 3. OCCASIONALLY FORGETS DATE BUT KNOWS YEAR, MONTH AND CURRENT EVENTS. STATES HE TALKS TO HER FOUR TIMES DAILY s DIFFICULTY. DR DELVALLE NOTIFIED. ORDER OBTAINED FOR HEAD CT s CONTRAST. PT TO IMAGING. STATUS CHANGED TO PCU s TELE. CHARGE NURSE NOTIFIED.
--- NOTE | 2019-10-14 17:54 | NUR ---
SHIFT SUMMARY PT RESTING IN BED. WAKES c VERBAL STIMULI. PT CONTINUES TO BE DIFFICULT TO UNDERSTAND c SLURRED SPEECH. HEAD CT COMPLETE TODAY, NO ACUTE FINDINGS. PT RESPONSE APPROPRIATELY TO QUESTIONS. FOLLOWS COMMANDS. PT ABLE TO SWALLOW MIDDAY. THIS EVENING, PT c DIFFICULTIES SWALLOWING D/T BREATHING PATTERN. DIETARY CONSULT ORDERED FOR TOMORROW. PT DENIED PAIN MOST OF SHIFT. PAIN c CARE OR REPOSITIONING. MEDICATED ORDERED. INCISION UNCHANGED THIS SHIFT. DRESSING C/D/I, ABD BINDER IN PLACE. BT HYPOACTIVE. REPORT TO ONCOMING NURSE.
[2019-10-15 07:34] LABS: Hematocrit 25.4 % (33.0-51.0); Mean Corpuscular HGB 31.7 pg (26.0-34.0); Mean Corpuscular HGB Conc 31.5 g/dL (31.5-36.5); Mean Corpuscular Volume 101 fL (80-100); Mean Platelet Volume 10.2 fL (9.1-12.4); Platelet Count 295 K/mm3 (150-400); RDW Coefficient Variation 12.3 % (11.7-14.2); RDW Standard Deviation 45.2 fL (35.1-46.3); Red Blood Cell Count 2.52 M/mm3 (3.80-5.20)
--- NOTE | 2019-10-15 07:34 | NUR ---
SHIFT SUMMARY PT LABILE REFUSES NURSES INTERVENTION. ABLE TO SWALLOW ONLY ONE PILL. WANTS TO BE LEFT ALONE. PAIN DURING REPOSITION. BLOOD GLUCOSE Q6, NO COVRAGE NEED @ 0600. NO ACUTE EVENTS WILL CONTINUE TO MONITOR.
--- NOTE | 2019-10-15 07:40 | NUR ---
ASSUMED CARE OF PT AT 0700. REPORT FROM J CARLOS POND. PT RESTING IN BED. WAKES c VERBAL STIMULI. MOANS, GARBLED SPEECH. DIFFICULT TO UNDERSTAND. STATES "I FEEL LIKE SHIT." DOES NOT ANSWER ADDITIONAL QUESTIONS, DOES NOT FOLLOW COMMANDS. LABORED, MOUTH BREATHING. LUNGS DIMINISHED IN BASES. VSS. ABD ROUND, SOFT NON TENDER. HYPOACTIVE BT. INCISION APPROXIMATED, NO DRAINAGE. BINDER IN PLACE. SWALLOW EVAL, PT/OT ORDERED. WILL CONSULT HOSPITALIST.
[2019-10-15 08:10] LABS: Anion Gap 5 mmol/L (6-16); Blood Urea Nitrogen 16 mg/dL (8-24); Bun/Creatinine Ratio 30.1 (12.0-20.0); CO2, Blood 24 mmol/L (21-32); Calcium, Blood 8.4 mg/dL (8.5-10.1); Chloride, Blood 115 mmol/L (98-108); Creatinine, Blood 0.53 mg/dL (0.40-1.00); Glomerular Filtration Rate >60 (60-); Glucose, Blood 119 mg/dL (70-99); Potassium, Blood 3.7 mmol/L (3.5-5.5); Sodium, Blood 144 mmol/L (136-145)
--- NOTE | 2019-10-15 08:25 | NUR ---
DR BACH IN TO SEE PT. UPDATED ON STATUS. PT DOES NOT FOLLOW COMMANDS, BUT MOVES LEFT HAND WHEN REPOSITIONED. MOSHE LAW. DENIES PAIN. WILL CONTINUE TO MONITOR NEURO STATUS.
--- NOTE | 2019-10-15 13:54 | NUR ---
pt able to review symptoms and assessment with great difficulty. Pt pupil nagi minimal blinking gets frustrated and stuck when speaking. She is angry about the tube in her nose and wants to see her . Will review with staff pt prognosis and ability to recovera nd rehab. pt has polst on file that states full treatment.
--- NOTE | 2019-10-15 16:30 | NUR ---
SHIFT SUMMARY SWALLOW EVAL COMPLETE TODAY. PT NPO STATUS, DOBHOFF PLACED TO LEFT NARE, PLACEMENT VERIFIED BY XRAY. TUBE FEEDS STARTED AT 25ML/HR c 30 ML Q4 HR FLUSHES. PT CONTINUES TO HAVE GARBLED SPEECH, DIFFICULT TO UNDERSTAND. A&OX 2. DOES NOT FOLLOW COMMANDS. MOANS AND YELLS c CARE. CALL PLACED TO [facility]. SENIOR ESTIMATOR STATES THAT AT BASELINE, PT MINIMALLY COOPERATES c CARE, OFTEN REFUSES TREATMENTS/BATHS. STATES SHE TAKES ALL MEALS IN BED. PT AND OT EVAL COMPLETED TODAY. RECOMMENDED NO FURTHER TREATMENTS. REPORT TO MARGARITO POND, PT TRANSFERRED TO PCU.
--- NOTE | 2019-10-15 17:00 | NUR ---
RECEIVED TELEPHONE REPORT FROM PEDRO LUIS LOCKSTITCH LINING SETTER. PT TRANSFERRED TO PCU VIA HOSPITAL BED. ASSUMED CARE OF PT. A&O X2. NO ACUTE DISTRESS NOTED AT THIS TIME.
--- NOTE | 2019-10-15 18:51 | NUR ---
Pt resting in bed comfortably at this time, in no acute distress. Denies pain or discomfort. NG tube secured to left nares, Glucerna 1.2 yuan running at 25ml/hr, Pt tolerating well. Side rails up, bed down, call light and possessions in reach.
--- NOTE | 2019-10-15 22:31 | NUR ---
RATE INCREASE TO GLUCERNA 1.2 RATE INCREASED TO 40 ML/HR PER ORDERS. START TIME WRITTEN ON GLUCERNA BOTTLE WAS 1417.
[2019-10-16 04:27] LABS: Hemoglobin 8.5 g/dL (11.5-16.0); Mean Corpuscular HGB 32.3 pg (26.0-34.0); Mean Corpuscular HGB Conc 32.7 g/dL (31.5-36.5); Mean Corpuscular Volume 99 fL (80-100); Mean Platelet Volume 9.8 fL (9.1-12.4); Platelet Count 334 K/mm3 (150-400); RDW Coefficient Variation 12.2 % (11.7-14.2); RDW Standard Deviation 43.8 fL (35.1-46.3); Red Blood Cell Count 2.63 M/mm3 (3.80-5.20); White Blood Cell Count 11.91 K/mm3 (4.00-11.30)
[2019-10-16 04:45] LABS: Anion Gap 5 mmol/L (6-16); Blood Urea Nitrogen 13 mg/dL (8-24); Bun/Creatinine Ratio 26.1 (12.0-20.0); CO2, Blood 25 mmol/L (21-32); Calcium, Blood 8.1 mg/dL (8.5-10.1); Chloride, Blood 112 mmol/L (98-108); Glomerular Filtration Rate >60 (60-); Glucose, Blood 162 mg/dL (70-99); Magnesium, Blood 1.5 mg/dL (1.6-2.4); Phosphorus, Blood 2.7 mg/dL (2.5-4.9); Potassium, Blood 3.2 mmol/L (3.5-5.5); Sodium, Blood 142 mmol/L (136-145)
--- NOTE | 2019-10-16 06:45 | NUR ---
RATE INCREASE TO GLUCERNA 1.2 RATE ON PUMP INCREASED TO GOAL RATE OF 55 ML/HR. WITH A FLUSH OF 30 MLS Q4H.
--- NOTE | 2019-10-16 07:28 | NUR ---
SHIFT SUMMARY PATIENT VERY SLEEPY BUT DOES OCCATIONALLY WAKE UP AND CALL/YELL OUT. PATIENT MEDICATED FOR PAIN PER EMAR. PATIENT ALSO REPOSITIONED FOR PAIN RELIEF WELL. PATIENT TURNED Q2H. IV FLUIDS RUNNING PER ORDERS, FEEDING VIA DOBHOFF RUNNING AT GOAL RATE AT THIS TIME, FLUSHES PER ORDERS. ORAL CARE PROVIDED, PATIENT OCCATIONALLY BITES DOWN ON THE SPONGE AND CLAMPS HER MOUTH CLOSED MAKING IT DIFFICULT TO PROVIDE ORAL CARE. PATIENT CURRENTLY APPEARS TO BE SLEEPING COMFORTABLY. REPORT GIVEN TO ONCOMING RN.
--- NOTE | 2019-10-16 08:50 | NUR ---
DR. BACH IN TO SEE PT. ORDERS RECEIVED.
--- NOTE | 2019-10-16 12:23 | NUR ---
A&O X2. ABLE TO FOLLOW BASIC COMMANDS. IN NO ACUTE DISTRESS AT THIS TIME. DENIES PAIN. TOLERATING GLUCERNA 1.2 BROOK AT 55 ML/HR. TELEPHONE REPORT GIVEN TO SOCORRO DOG HANDLER. PT TRANSPORTED TO SURGICAL UNIT VIA STRETCHER.
--- NOTE | 2019-10-16 15:50 | NUR ---
phone call assisted patient with placing phone call to her , pt awake spoke in full sentences to her . after hanging up telephone patient began to cry out "help me" does not answer whn asked what she would like help with. re positioned patient and patient then resting with eyes closed
--- NOTE | 2019-10-16 18:12 | NUR ---
SUNNARY PATIENT WITH PERIODS OF TALKING IN FULL SENTENCES AND AT TIMES CALLS OUT FOR HELP AND DOES NOT ANSWER QUESTIONS WHEN ASKED. PT COOPERATIVE. TOLERATING TUBE FEEDINGS. HOB ELEVATED THROUGHOUT SHIFT DUE TO TUBE FEEDING. PT DENIES PAIN WHEN ASKED
[2019-10-17 04:12] LABS: Hematocrit 27.2 % (33.0-51.0); Hemoglobin 9.1 g/dL (11.5-16.0); Mean Corpuscular HGB 32.2 pg (26.0-34.0); Mean Corpuscular HGB Conc 33.5 g/dL (31.5-36.5); NRBC ABSOLUTE 0.02 K/mm3 (0.00-0.02); NRBC Auto 0.2 /100 WBC (0.0-0.2); Platelet Count 313 K/mm3 (150-400); RDW Coefficient Variation 11.9 % (11.7-14.2); RDW Standard Deviation 41.6 fL (35.1-46.3); Red Blood Cell Count 2.83 M/mm3 (3.80-5.20); White Blood Cell Count 10.59 K/mm3 (4.00-11.30)
[2019-10-17 04:15] LABS: Mean Corpuscular Volume 96 fL (80-100)
[2019-10-17 04:28] LABS: Anion Gap 7 mmol/L (6-16); Blood Urea Nitrogen 13 mg/dL (8-24); Bun/Creatinine Ratio 32.1 (12.0-20.0); CO2, Blood 27 mmol/L (21-32); Calcium, Blood 8.2 mg/dL (8.5-10.1); Chloride, Blood 106 mmol/L (98-108); Creatinine, Blood 0.41 mg/dL (0.40-1.00); Glomerular Filtration Rate >60 (60-); Glucose, Blood 197 mg/dL (70-99); Magnesium, Blood 1.3 mg/dL (1.6-2.4); Phosphorus, Blood 2.3 mg/dL (2.5-4.9); Potassium, Blood 3.1 mmol/L (3.5-5.5); Sodium, Blood 140 mmol/L (136-145)
--- NOTE | 2019-10-17 06:14 | NUR ---
SHIFT SUMMARY: PT RESTING MOST OF SHIFT. CALM AND COOPERATIVE WITH CARE. A&O X2. BP ELEVATED T/O SHIFT. O2 SATS STABLE ON 2-3LO2 VIA NC. TACHYPNEIC AND DIAPHORETIC THIS MORNING. PT ALSO ANXIOUS THIS MORNING AND REPORTS BEING PAINFUL. GIVEN 5MG OXYCODONE PER EMAR. SHAH IN PLACE AND DRAINING ADEQUATE AMT OF URINE. IV FLUIDS TKO. CONT FEEDS PER NG TUBE INFUSING AT 55ML/HR PER ORDERS. PT NPO. ALL MEDS GIVEN PER TUBE. PT DIFFICULT TO UNDERSTAND AT TIMES. SPEECH SLURRED AND SOMETIMES GARBLED. 2 MAX ASSIST FOR REPOSITIONING. ABD PAD COVERING MIDLINE JEFF.
[2019-10-17 19:39] LABS: PCO2 Arterial 25.9 mmHg (35-45); PO2 Arterial 59.3 mmHg (80-100)
--- NOTE | 2019-10-17 20:01 | NUR ---
UPON RECIEVING REPORT, PATIENT WAS NOTED HAVING DIAPHORESIS SOAKING THROUGH GOWN. TEMP 97.1-98.2 DEGREES. RESP RATE 36-40, RAPID BREATHING FOLLOWED BY 5-10 SECONDS OF APNEA, 3L O2 VIA NC, BIOX 92%. bp 152/102, HR 100-130BPM. DR Canales WAS NOTIFIED OF CHANGE IN PATIENT CONDITION, hE ASKED THAT i CALL THE HOSPITALIST ON FOR THE NIGHT. DR ALFARO WAS THEN CALLED. sHE WAS INFORMED BY MYSELF AND THE OFFGOING NURSE. oRDERS RECIEVED FOR UDN, 1VIEW CHEST XRAY, AND ABG. AFTER ALL COMPLETED, DR ALFARO WAS NOTIFIED OF THE ABG RESULTS. SHE STATED THAT SHE WOULD BE BY TO SEE THE PATEINT. NO OTHER ORDERS AT THIS TIME. UPDATE @2006 PATIENT RR 34 BPM. BIOX 92% ON 3L NC. BP 148/86.
--- NOTE | 2019-10-17 21:04 | NUR ---
patient transferred to PCU 10 report given to charge nurse and eYssi POND. patient status is unchanged form previous note.
[2019-10-17 21:08] LABS: Hematocrit 31.8 % (33.0-51.0); Hemoglobin 10.7 g/dL (11.5-16.0); Mean Corpuscular HGB 31.9 pg (26.0-34.0); Mean Corpuscular HGB Conc 33.6 g/dL (31.5-36.5); Mean Corpuscular Volume 95 fL (80-100); Mean Platelet Volume 10.3 fL (9.1-12.4); NRBC ABSOLUTE 0.07 K/mm3 (0.00-0.02); NRBC Auto 0.3 /100 WBC (0.0-0.2); Platelet Count 428 K/mm3 (150-400); RDW Coefficient Variation 11.9 % (11.7-14.2); RDW Standard Deviation 41.6 fL (35.1-46.3); Red Blood Cell Count 3.35 M/mm3 (3.80-5.20); White Blood Cell Count 25.28 K/mm3 (4.00-11.30)
--- NOTE | 2019-10-17 21:20 | NUR ---
PT TRANSFERRED FROM SURGICAL FLOOR TO [facility] AT APPROX 2105. PT TACHYPNEIC AND DIAPHORETIC UPON ARRIVAL. LUNGS DIMINISHED THROUGHOUT AND COURSE IN UPPER LOBES. PT ALSO SOUNDS CONGESTED WITH WEAK COUGH. PT HAVING APNEIC EPISODES FOR APPROX 10 SEC FOLLOWED BY RAPID BREATHING. PT APPEARS TO BE IN DISTRESS. RESPIRATIONS 36. HR 113. BP 165/75. O2 95% ON 3LO2.
[2019-10-17 21:25] LABS: BAND PERCENT MAN 3 % (0-8); BASOPHILS PERCENT MAN 0 % (0-2); EOSINOPHILS PERCENT MAN 0 % (0-6); LYMPHOCYTES PERCENT MAN 2 % (21-46); METAMYELOCYTE ABSOLUTE MAN 0.25 K/mm3 (0.00-0.00); METAMYELOCYTE PERCENT MAN 1 % (0-0); MONOCYTES ABSOLUTE MAN 1.01 K/mm3 (0.16-1.47); MONOCYTES PERCENT MAN 4 % (4-13); MYELOCYTE ABSOLUTE MAN 0.25 K/mm3 (0.00-0.00); MYELOCYTE PERCENT MAN 1 % (0-0); NEUTROPHILS ABSOLUTE MAN 23.25 K/mm3 (1.96-9.15); SEG NEUTROPHILS PERCENT MAN 89 % (41-73); TOTAL CELLS COUNTED 100
[2019-10-17 21:30] LABS: Alanine Aminotransfer (ALT/SGP 19 U/L (12-78); Albumin, Blood 1.8 g/dL (3.4-5.0); Albumin/Globulin Ratio 0.4 (0.8-1.8); Alk Phos 122 U/L (50-136); Anion Gap 9 mmol/L (6-16); Aspartate Aminotrans (AST/SGOT 15 U/L (12-37); Bilirubin, Total 0.4 mg/dL (0.1-1.0); Blood Urea Nitrogen 19 mg/dL (8-24); Bun/Creatinine Ratio 33.2 (12.0-20.0); CO2, Blood 26 mmol/L (21-32); Calcium, Blood 8.6 mg/dL (8.5-10.1); Chloride, Blood 103 mmol/L (98-108); Creatinine, Blood 0.57 mg/dL (0.40-1.00); Globulin, Blood 4.4 g/dL (2.2-4.0); Glomerular Filtration Rate >60 (60-); Glucose, Blood 431 mg/dL (70-99); Potassium, Blood 3.4 mmol/L (3.5-5.5); Sodium, Blood 138 mmol/L (136-145); Total Protein, Blood 6.2 g/dL (6.4-8.2)
--- NOTE | 2019-10-17 21:59 | NUR ---
CALL PLACED TO HOSPITALIST AT THIS TIME REGARDING CRITICAL LAB VALUE. NO ANSWER. WILL WAIT FOR CALL BACK.
[2019-10-18 00:21] LABS: Hematocrit 28.1 % (33.0-51.0); Hemoglobin 9.3 g/dL (11.5-16.0); Mean Corpuscular HGB 31.4 pg (26.0-34.0); Mean Corpuscular HGB Conc 33.1 g/dL (31.5-36.5); Mean Corpuscular Volume 95 fL (80-100); Mean Platelet Volume 10.2 fL (9.1-12.4); NRBC ABSOLUTE 0.05 K/mm3 (0.00-0.02); NRBC Auto 0.2 /100 WBC (0.0-0.2); Platelet Count 345 K/mm3 (150-400); RDW Standard Deviation 41.3 fL (35.1-46.3); Red Blood Cell Count 2.96 M/mm3 (3.80-5.20); White Blood Cell Count 21.18 K/mm3 (4.00-11.30)
[2019-10-18 00:39] LABS: Anion Gap 6 mmol/L (6-16); Blood Urea Nitrogen 18 mg/dL (8-24); Bun/Creatinine Ratio 39.3 (12.0-20.0); CO2, Blood 27 mmol/L (21-32); Calcium, Blood 7.9 mg/dL (8.5-10.1); Chloride, Blood 106 mmol/L (98-108); Creatinine, Blood 0.46 mg/dL (0.40-1.00); Glomerular Filtration Rate >60 (60-); Glucose, Blood 378 mg/dL (70-99); Magnesium, Blood 1.6 mg/dL (1.6-2.4); Phosphorus, Blood 2.1 mg/dL (2.5-4.9); Sodium, Blood 139 mmol/L (136-145)
[2019-10-18 04:58] LABS: PCO2 Arterial 32.5 mmHg (35-45); PO2 Arterial 77.3 mmHg (80-100); pH Blood Arterial 7.51 (7.35-7.45)
--- NOTE | 2019-10-18 10:07 | NUR ---
TALKED WITH ONT HE PHONE ABOUT PT STATUS AND TRANSFER TO PCU. DR BACH PLAN FOR TODAY. CONTINUE POT.
[2019-10-18 11:23] LABS: Adenovirus F 40/41 Not Detected (NOT DETECT); Astrovirus Not Detected (NOT DETECT); Campylobacter Sp Not Detected (NOT DETECT); Cryptosporidium Not Detected (NOT DETECT); Cyclospora Cayetanensis Not Detected (NOT DETECT); E. Coli O157 Not Detected (NOT DETECT); Entamoeba Histolytica Not Detected (NOT DETECT); Enteroaggregative E. coli-EAEC Not Detected (NOT DETECT); Enteropathogenic E. coli-EPEC Not Detected (NOT DETECT); Enterotoxigenic E. coli-ETEC Not Detected (NOT DETECT); Giardia Lamblia Not Detected (NOT DETECT); Norovirus GI/GII Not Detected (NOT DETECT); Plesiomonas Shigelloides Not Detected (NOT DETECT); Rotavirus A Not Detected (NOT DETECT); Salmonella Sp Not Detected (NOT DETECT); Sapovirus Not Detected (NOT DETECT); Shiga Toxin-prod E. coli-STEC Not Detected (NOT DETECT); Shigella/Enteroin E. coli-EIEC Not Detected (NOT DETECT); Vibrio Cholerae Not Detected (NOT DETECT); Vibrio Sp Not Detected (NOT DETECT); Yersinia Enterocolitica Not Detected (NOT DETECT)
--- NOTE | 2019-10-18 11:37 | NUR ---
ct scan Pt transfered to [facility] with slider sheet and 4 assist. She was transported to ct with oxygen. Pt alert and agreeable to scan. Continue pot.
--- NOTE | 2019-10-18 12:21 | NUR ---
CT ANGIOGRAM PT RETURNED FROM CT. PT AWAKE AND ALERT. SOUCE AT BEDSIDE. TRANFERED TO BED WITH SLIDER AND 4 ASSIST. VSS. HOB EELVATED TO 30 DEGREES AND TUBE FEEDING RESTARTED AT 55 ML/HR. IVF RESTARTED THROUGH LEFT UE POWER GLIDE. K RIDER #1 STARTED NOW THAT ZOSYN IS COMPLETE. PT HOLDING HANDS WITH AND RESTING. TURNED TOWARDS DOOR TO ALLOW HER TO SEE HIM. CONTINUE POT.
--- NOTE | 2019-10-18 12:34 | NUR ---
Echocardiogram completed.
--- NOTE | 2019-10-18 18:25 | NUR ---
NOTE PT RESTIGN QUIETLY. SR. VSS. LARGE INCONTINENT VOID. THOMAS ARE CLEAN AND DRY. MULTIPLE LOOSE STOOL. STOOL SAMPLE SENT TO LAB. TUBE FEEDING STOPPED PER DR BACH D/T FLUID STATUS. LASIX GIVEN. PT REFUSED DINNER. MIDLINE ABD INCISION CD&I. MEDICATED FOR PAIN X2. PT TOLERATED CT SCAN WELL. SPOUCE HERE TO SEE HER TODAY. CONTINUE POT.
[2019-10-19 03:55] LABS: Hematocrit 24.7 % (33.0-51.0); Hemoglobin 8.1 g/dL (11.5-16.0); Mean Corpuscular HGB 31.8 pg (26.0-34.0); Mean Corpuscular HGB Conc 32.8 g/dL (31.5-36.5); Mean Corpuscular Volume 97 fL (80-100); Mean Platelet Volume 10.3 fL (9.1-12.4); NRBC ABSOLUTE 0.03 K/mm3 (0.00-0.02); NRBC Auto 0.2 /100 WBC (0.0-0.2); Platelet Count 314 K/mm3 (150-400); RDW Coefficient Variation 12.4 % (11.7-14.2); RDW Standard Deviation 43.1 fL (35.1-46.3); Red Blood Cell Count 2.55 M/mm3 (3.80-5.20); White Blood Cell Count 13.23 K/mm3 (4.00-11.30)
[2019-10-19 04:10] LABS: Anion Gap 8 mmol/L (6-16); Blood Urea Nitrogen 17 mg/dL (8-24); Bun/Creatinine Ratio 34.8 (12.0-20.0); CO2, Blood 26 mmol/L (21-32); Calcium, Blood 7.8 mg/dL (8.5-10.1); Chloride, Blood 111 mmol/L (98-108); Creatinine, Blood 0.49 mg/dL (0.40-1.00); Glomerular Filtration Rate >60 (60-); Glucose, Blood 169 mg/dL (70-99); Magnesium, Blood 1.7 mg/dL (1.6-2.4); Phosphorus, Blood 2.6 mg/dL (2.5-4.9); Potassium, Blood 3.1 mmol/L (3.5-5.5); Sodium, Blood 145 mmol/L (136-145)
--- NOTE | 2019-10-19 06:10 | NUR ---
hard to understand r/slurred speech, anxious as to what is being or not being done for or to her, frequent repositioning and q6 cbg, abdm dressing cdi, call light in reach, will continue to monitor and treat until share bsr with day shift and pt, infusing ns with no s/sx of infection or infiltration, no significant medical changes noted during shift
--- NOTE | 2019-10-19 07:30 | NUR ---
PT IS AWAKE, RESTING IN BED. SHE IS ABLE TO ANSWER QUESTIONS. SPEECH IS CLEARING. DENIES SOB OR PAIN AT THIS TIME. 1 L O2 PER NC, NS KVO. CALL LIGHT IN REACH.
--- NOTE | 2019-10-19 08:52 | NUR ---
Dobhoff removed PER DR BACH THIS MONRING. AFTER BREAKFAST TO SEE HOW PT APPETITE WAS. PT ATE WELL. REMOVED DOBHOFF FROM LEFT NARE. PT TOLERATED WELL. NO SKIN INJURY NOTED TO EXTERNAL LEFT NARE. DOBHOFF LENGTH INTACT. CONTINUE POT.
--- NOTE | 2019-10-19 09:28 | NUR ---
REDDY EAR PT CALLED AND REQUESTED TO HAVE THE PHONE HELD TO CARLINE BRUNO. PLACED PHONE TO RIGHT EAR. PT UNABLE TO HEAR OTILIA. THIS NURSE COULD HEAR HIM CLEARLY. CHANGED TO THE LEFT EAR. PT ABLE TO HEAR OTILIA WELL. AFTER PHONE CALL CHECKED PT RIGHT EAR THAT IS FULL OF STUFF. WILL CALL DR BACH. CONTINUE POT.
--- NOTE | 2019-10-19 09:50 | NUR ---
IN TO ASSESS PT AT THIS TIME. ABD DRESSING CHANGED, JEFF REMAIN INTACT, NO S/S INFECTION.
--- NOTE | 2019-10-20 | NUR ---
PATIENT WEANED OFF O2. MAINTAINING SATS ON ROOM AIR WHILE SLEEPING.
[2019-10-20 04:06] LABS: Hematocrit 26.6 % (33.0-51.0); Hemoglobin 8.6 g/dL (11.5-16.0); Mean Corpuscular HGB 31.6 pg (26.0-34.0); Mean Corpuscular HGB Conc 32.3 g/dL (31.5-36.5); Mean Corpuscular Volume 98 fL (80-100); Mean Platelet Volume 10.6 fL (9.1-12.4); Platelet Count 311 K/mm3 (150-400); RDW Coefficient Variation 12.6 % (11.7-14.2); RDW Standard Deviation 42.8 fL (35.1-46.3); Red Blood Cell Count 2.72 M/mm3 (3.80-5.20)
[2019-10-20 04:21] LABS: Anion Gap 6 mmol/L (6-16); Blood Urea Nitrogen 16 mg/dL (8-24); Bun/Creatinine Ratio 35.2 (12.0-20.0); CO2, Blood 28 mmol/L (21-32); Calcium, Blood 8.1 mg/dL (8.5-10.1); Chloride, Blood 112 mmol/L (98-108); Creatinine, Blood 0.45 mg/dL (0.40-1.00); Glomerular Filtration Rate >60 (60-); Glucose, Blood 190 mg/dL (70-99); Potassium, Blood 3.3 mmol/L (3.5-5.5); Sodium, Blood 146 mmol/L (136-145)
--- NOTE | 2019-10-20 07:20 | NUR ---
PT ALERT FOLLOWING COMMANDS, ABLE TO SWALLOW THICKEN WATER AND APPLESAUCE. MUST BE FULLY ALRET PRIOR TO STRAW USE. DENIES PAIN. WEANED OFF 02 MAINTIANED SATS ON ROOM AIR. NO INSULIN COVRAGE NEED AT 0600. NO ACUTE EVENTS WILL CONTINUE TO MONITOR.
--- NOTE | 2019-10-20 14:47 | NUR ---
JEFF REMOVED PER ORDERS. EVERY 3RD STAPLE, STERI STRIPS APPLIED,EDGES APPROXIMATED. INCISION HAS A SMALL AMOUNT OF SS FLUID DRAINING SO A DRSG WAS APPLIED. PT TOLERATED WELL.
--- NOTE | 2019-10-20 16:22 | NUR ---
SUMMARY NO ACUTE CHANGES NOTED THIS SHIFT. PT REMAINS A&O X3. RESP UNLABORED, O2 SATS >93 ON ROOM AIR. PT DENIES PAIN/SOB. JEFF REMOVED PER ORDERS, STERI STRIPS PLACED. SPEECH THERAPY WAS IN TO EVALUATE PT. SHE IS TOLERATING PO INTAKE. VOIDING WNL, BM X1. ATTENDS CHANGED PRN AND WITH Q2 TURNS. UPDATED ON PT'S CONDITION. CALL LIGHT IN REACH, [facility]
--- NOTE | 2019-10-21 01:05 | NUR ---
ASSUMED CARE APPROXIMATELY 1900; PT ALERT AND TRACKING W/ HER EYES; TAKES SIGNIFICANT TIME TO RESPONDE, BUT CAN ANSWER QUESTIONS; PT ON RA W/ O2 SATS >94; PT C/O LEG PAIN; MASSAGES LEGS AND REPOSITIONED W/ PILLOWS; CALL LIGHT IN REACH; BED IN LOWEST POSITION; WILL CONTINUE TO MONITOR CLOSELY
--- NOTE | 2019-10-21 05:41 | NUR ---
SHIFT SUMMARY PT CALM AND COMPLIANT W/ CARE; ALERT AND ORIENTED TO SELF; TAKES SIGNIFICANT TIME TO ANSWER QUESTIONS; PT STATED SHE LIKED TO WATCH THIS RN WORK AND ASKED ME NOT TO LEAVE THE ROOM; C/O LEG PAIN; RUBBED LEGS AND REPOSITIONED AND PT STATED IT FELT BETTER; PT INCONTINENT W/ ATTENDS IN PLACE; CALL LIGHT IN REACH; BED IN LOWEST POSITION; WILL CONTINUE TO MONITOR UNTIL HAND OFF TO DAY SHIFT RN
[2019-10-21 05:43] LABS: BASOPHILS ABSOLUTE AUTO 0.04 K/mm3 (0.00-0.23); BASOPHILS PERCENT AUTO 0 % (0-2); EOSINOPHILS ABSOLUTE AUTO 0.35 K/mm3 (0.00-0.68); EOSINOPHILS PERCENT AUTO 3 % (0-6); Hematocrit 26.7 % (33.0-51.0); Hemoglobin 8.7 g/dL (11.5-16.0); IMMATURE GRAN ABSOLUTE AUTO 0.28 K/mm3 (0.00-0.10); IMMATURE GRAN PERCENT AUTO 3 % (0-1); LYMPHOCYTES ABSOLUTE AUTO 2.28 K/mm3 (0.84-5.20); LYMPHOCYTES PERCENT AUTO 20 % (21-46); MONOCYTES ABSOLUTE AUTO 0.74 K/mm3 (0.16-1.47); MONOCYTES PERCENT AUTO 7 % (4-13); Mean Corpuscular HGB 32.1 pg (26.0-34.0); Mean Corpuscular HGB Conc 32.6 g/dL (31.5-36.5); Mean Corpuscular Volume 99 fL (80-100); Mean Platelet Volume 10.3 fL (9.1-12.4); NEUTROPHILS ABSOLUTE AUTO 7.72 K/mm3 (1.96-9.15); NEUTROPHILS PERCENT AUTO 68 % (41-73); NRBC ABSOLUTE 0.02 K/mm3 (0.00-0.02); NRBC Auto 0.2 /100 WBC (0.0-0.2); Platelet Count 341 K/mm3 (150-400); RDW Coefficient Variation 13.3 % (11.7-14.2); RDW Standard Deviation 44.9 fL (35.1-46.3); Red Blood Cell Count 2.71 M/mm3 (3.80-5.20); White Blood Cell Count 11.41 K/mm3 (4.00-11.30)
[2019-10-21 06:01] LABS: Alanine Aminotransfer (ALT/SGP 19 U/L (12-78); Albumin, Blood 1.8 g/dL (3.4-5.0); Albumin/Globulin Ratio 0.4 (0.8-1.8); Alk Phos 73 U/L (50-136); Anion Gap 5 mmol/L (6-16); Aspartate Aminotrans (AST/SGOT 13 U/L (12-37); Bilirubin, Total 0.4 mg/dL (0.1-1.0); Blood Urea Nitrogen 15 mg/dL (8-24); Bun/Creatinine Ratio 31.2 (12.0-20.0); CO2, Blood 29 mmol/L (21-32); Calcium, Blood 8.3 mg/dL (8.5-10.1); Chloride, Blood 113 mmol/L (98-108); Creatinine, Blood 0.48 mg/dL (0.40-1.00); Globulin, Blood 4.1 g/dL (2.2-4.0); Glomerular Filtration Rate >60 (60-); Glucose, Blood 98 mg/dL (70-99); Magnesium, Blood 1.9 mg/dL (1.6-2.4); Potassium, Blood 3.2 mmol/L (3.5-5.5); Sodium, Blood 147 mmol/L (136-145); Total Protein, Blood 5.9 g/dL (6.4-8.2)
--- NOTE | 2019-10-21 09:00 | NUR ---
Assumed care Pt sitting in bed, lethargic but oriented, alertness improves with interaction. Pt VSS, takes pills crushed in apple sauce and honey thickness for liquids. See shift assessment for detailed systems assessment. Pt repositioned q2, attends in place and dry. Oral care provided to pt after breakfast and medication administration. Pt enjoyed the music therapy visit from Kris, recieved a bed bath from this RN. Pt with significant R sided weakness and neglect. Will continue to monitor.
--- NOTE | 2019-10-21 12:47 | NUR ---
Report called to 227 RN; all questions answered at this time, pt report given.
--- NOTE | 2019-10-21 13:32 | NUR ---
PT TRANSFERRED TO 227 WITH ALL PT BELONGINGS.
--- NOTE | 2019-10-21 13:34 | NUR ---
PT TRANSFERED TO ROOM 227. MOVED WITH MULT ASSIST TO BED. PT ASSISTED WITH ADL'S PRN. PT BED ALARM IN PLACE. BLE ELEVATED ON PILLOWS. PT R ARM ELEVATED ON PILLOW AND FINGERS STRAIGHTENED. THIS RN BEEN GIVEN REPORT AND IS ASSUMING CARE OF PT AT THIS TIME.
--- NOTE | 2019-10-21 19:27 | NUR ---
PT PCU TRANSFER TODAY. PT BEEN RESTING QUIETLY. PT ASSISTED WITH DINNER WITH ASP PRECAUTIONS IN PLACE. PT DID NOT HAVE ANY DIFFICULTY OR CHOKING NOTED. PT BEEN REPOSITIONED WITH ASSIST FROM FEMALE FIRE CODE INSPECTOR. PT HAD BM AND VOIDING IN ATTENDS WHICH WAS CHANGED WITH ASSIST FROM FEMALE FIRE CODE INSPECTOR. PT ALARM IN PLACE. BLE ELEVATED ON PILLOWS, R ARM ELEVATED ON PILLOW.
--- NOTE | 2019-10-22 00:41 | NUR ---
ARMS AND LEGS FLOATED.
--- NOTE | 2019-10-22 05:57 | NUR ---
SHIFT SUMMARY: CARLINE HAS RESTED COMFORTABLY THROUGH MOST OF THE SHIFT. SHE AROUSES TO VOICE AND RESPONDS APPROPRIATELY, ALTHOUGH SHE DOES TAKE TIME TO FORM HER WORDS. HER SPEECH IS SLURRED AT TIMES, BUT SHE IS ABLE TO MAKE HER NEEDS KNOWN. SHE HAS BEEN INCONTINENT OF BOWEL AND BLADDER THIS SHIFT. THE MEPILEX TO HER COCCYX WAS CHANGED, NO OPEN AREAS. SHE TOLERATED THICKENED LIQUIDS BY SPOON WELL. SHE DID NOT PRODUCE ANY SPUTUM THIS SHIFT. SHE WAS TURNED AND REPOSITIONED Q2. SHE DENIED PAIN THIS SHIFT. SHE IS LYING IN BED WTIH HER CALL LIGHT IN REACH.
--- NOTE | 2019-10-22 13:16 | NUR ---
DISCHARGE/TRANSFER SUMMARY REPORT PROVIDED TO JAY AT [facility]. JAY IS FAMILIAR WITH PT. RELAYED NEW SWALLOW PRECAUTIONS 30 AT REST/90 FULL FOR EATING, PUREED/HONEY THICK, FEED/DRINK ASSIST, NO STRAWS/SPOON ONLY, MEDS W/PUDDING OR APPLESAUCE, SUCTION Q4; REMOVE ABD JEFF 10/23/[address] WITH STERISTRIPS. PRIOR TO TRANSFER - EVERY 3RD STAPLE REMOVED AND REPLACED WITH STERIS, NEW GAUZE AND MEDIPORE DRESSING APPLIED, NEW MEPILEX ON COCCYX, BEDBATH AND HAIR WASHED. IV AND POWERGLIDE REMOVED
== END 2019-10-22 12:21 | DRG 853 ==
LOC: ER 11:03 → ICUW 15:42 → PCU 15:42 → ICUW 18:04 → PCU 10-15 16:30 → SURS 10-16 12:42 → PCU 10-17 20:50 → SURS 10-21 13:22
PROVIDERS: Emergency Medicine; Internal Medicine; Obstetrics & Gynecology; Surgery; ADMIT Hospitalist
PROC: 0UT70ZZ Resection of Bilateral Fallopian Tubes, Open Approach (ICD-10-PCS; 2019-10-12)
PROC: 0UT20ZZ Resection of Bilateral Ovaries, Open Approach (ICD-10-PCS; 2019-10-12)
PROC: 0UTC0ZZ Resection of Cervix, Open Approach (ICD-10-PCS; 2019-10-12)
PROC: 0DQB0ZZ Repair Ileum, Open Approach (ICD-10-PCS; 2019-10-12)
PROC: 0DQN0ZZ Repair Sigmoid Colon, Open Approach (ICD-10-PCS; 2019-10-12)
PROC: 0UT90ZZ Resection of Uterus, Open Approach (ICD-10-PCS; principal; 2019-10-12 09:00)
PROC: 0UN70ZZ Release Bilateral Fallopian Tubes, Open Approach (ICD-10-PCS; 2019-10-12 09:00)
PROC: 0UN20ZZ Release Bilateral Ovaries, Open Approach (ICD-10-PCS; 2019-10-12 09:00)
DX: A41.9 Sepsis, unspecified organism (principal); G93.41 Metabolic encephalopathy; J96.01 Acute respiratory failure with hypoxia; J18.9 Pneumonia, unspecified organism; I63.9 Cerebral infarction, unspecified; N17.9 Acute kidney failure, unspecified; R65.20 Severe sepsis without septic shock; E87.6 Hypokalemia; E83.42 Hypomagnesemia; E11.9 Type 2 diabetes mellitus without complications; Z79.4 Long term (current) use of insulin; R47.81 Slurred speech; N70.93 Salpingitis and oophoritis, unspecified; I25.10 Atherosclerotic heart disease of native coronary artery without angina pectoris; M54.40 Lumbago with sciatica, unspecified side; E78.5 Hyperlipidemia, unspecified; N83.8 Other noninflammatory disorders of ovary, fallopian tube and broad ligament; N80.0 Endometriosis of uterus
CPT/HCPCS: 0097U; 36415; 36600; 70450; 71045; 71046; 71260; 74176; 74177; 80048; 80053; 81001; 82803; 82947; 83605; 83690; 83735; 83880; 84100; 84484; 85025; 85027; 85610; 85730; 86850; 86900; 86901; 87040; 87086; 88307; 88311; 92526; 92610; 93005; 93010; 93306; 94640; 94760; 96361; 96365; 96365-59; 96367; 96375; 99285-25; A9270; A9270-GY; C1751; J0360; J0694; J0696; J1120; J1170; J1650; J1815; J1940; J2370; J2405; J2543; J2704; J2765; J3010; J3475; J3480; J7030; J7050; J7060; J7120; P9612; Q9967

== ENCOUNTER 2019-10-31 07:34 | Emergency (ER) | payer MEDICARE, OTHER ==
[~2019-10-31] VITALS: Ht 157.5 cm; Wt 90.7 kg
[~2019-10-31 07:34] MED LIST changes: +METFORMIN HCL500 M2 PO
[2019-10-31] MEDS ORDERED: MILK OF MA400 MG/5 M PO (07:48)
[2019-10-31] MEDS ORDERED: AMLO10 PO (07:48)
[2019-10-31] MEDS ORDERED: METO25 PO (07:48)
[2019-10-31] MEDS ORDERED: OLAN2.5 PO (07:49)
[2019-10-31] MEDS ORDERED: CLOP75 PO (07:50)
[2019-10-31] MEDS ORDERED: POTCHL20ER PO (07:50)
[2019-10-31] MEDS ORDERED: OXYC5 PO (07:50)
[2019-10-31] MEDS ORDERED: PANT20 PO (07:50)
[2019-10-31] MEDS ORDERED: TIZA4 PO (07:52)
[2019-10-31] MEDS ORDERED: ACET325 PO (07:52)
[2019-10-31] MEDS ORDERED: GABA100 PO (07:53)
[2019-10-31] MEDS ORDERED: BENADRYL25 MG PO (07:53)
[2019-10-31] MEDS ORDERED: DOCU100 PO (07:53)
[2019-10-31] MEDS ORDERED: LISI20 PO (07:54)
[2019-10-31] MEDS ORDERED: HYDRA25 PO (07:54)
[2019-10-31] MEDS ORDERED: INSDET100 SC (07:54)
[2019-10-31] MEDS ORDERED: Loratadine10 MG PO (07:55)
[2019-10-31 08:39] LABS: BASOPHILS ABSOLUTE AUTO 0.04 K/mm3 (0.00-0.23); BASOPHILS PERCENT AUTO 0 % (0-2); EOSINOPHILS ABSOLUTE AUTO 0.25 K/mm3 (0.00-0.68); EOSINOPHILS PERCENT AUTO 3 % (0-6); Hematocrit 30.3 % (33.0-51.0); Hemoglobin 9.4 g/dL (11.5-16.0); IMMATURE GRAN ABSOLUTE AUTO 0.11 K/mm3 (0.00-0.10); IMMATURE GRAN PERCENT AUTO 1 % (0-1); LYMPHOCYTES ABSOLUTE AUTO 1.65 K/mm3 (0.84-5.20); LYMPHOCYTES PERCENT AUTO 18 % (21-46); MONOCYTES ABSOLUTE AUTO 0.64 K/mm3 (0.16-1.47); MONOCYTES PERCENT AUTO 7 % (4-13); Mean Corpuscular HGB 31.6 pg (26.0-34.0); Mean Corpuscular Volume 102 fL (80-100); Mean Platelet Volume 9.9 fL (9.1-12.4); NEUTROPHILS ABSOLUTE AUTO 6.31 K/mm3 (1.96-9.15); NEUTROPHILS PERCENT AUTO 70 % (41-73); Platelet Count 408 K/mm3 (150-400); RDW Coefficient Variation 13.3 % (11.7-14.2); RDW Standard Deviation 49.6 fL (35.1-46.3); Red Blood Cell Count 2.97 M/mm3 (3.80-5.20)
[2019-10-31 08:48] LABS: Influenza A Negative (NEGATIVE); Influenza B Negative (NEGATIVE)
[2019-10-31 08:56] LABS: Alanine Aminotransfer (ALT/SGP 9 U/L (12-78); Albumin, Blood 1.9 g/dL (3.4-5.0); Albumin/Globulin Ratio 0.4 (0.8-1.8); Alk Phos 80 U/L (50-136); Anion Gap 4 mmol/L (6-16); Aspartate Aminotrans (AST/SGOT 8 U/L (12-37); Bilirubin, Total 0.4 mg/dL (0.1-1.0); Blood Urea Nitrogen 13 mg/dL (8-24); Bun/Creatinine Ratio 24.6 (12.0-20.0); CO2, Blood 27 mmol/L (21-32); Calcium, Blood 8.5 mg/dL (8.5-10.1); Chloride, Blood 113 mmol/L (98-108); Creatinine, Blood 0.53 mg/dL (0.40-1.00); Globulin, Blood 4.5 g/dL (2.2-4.0); Glomerular Filtration Rate >60 (60-); Glucose, Blood 93 mg/dL (70-99); Potassium, Blood 4.1 mmol/L (3.5-5.5); Sodium, Blood 144 mmol/L (136-145); Total Protein, Blood 6.4 g/dL (6.4-8.2)
[2019-10-31 09:04] LABS: Source, Urine Clean Catch
[2019-10-31 09:09] LABS: Bilirubin, Urine Neg (Neg); Blood, Urine Neg (Neg); Glucose Qualitative, Urine Neg (Neg); Ketones, Urine Neg (Neg); Leukocyte Esterase, Urine 1+ (Neg); Nitrite, Urine Neg (Neg); Protein, Urine Neg (Neg); Urobilinogen, Urine 1+ (Normal)
[2019-10-31 09:18] LABS: Appearance, Urine Hazy (Clear); Color, Urine Yellow (P-Yellow)
[2019-10-31 09:19] LABS: Amorphous Mod (0-Heavy); Bacteria Few /hpf; Red Blood Cells, Urine 0-2 /hpf (0-2); Squamous Epithelial Cells Few /hpf (Few)
== END 2019-10-31 10:09 | disposition home or self-care (01) ==
LOC: ER 07:34
PROVIDERS: Emergency Medicine
DX: R50.9 Fever, unspecified (principal); I10 Essential (primary) hypertension; E11.9 Type 2 diabetes mellitus without complications; Z90.710 Acquired absence of both cervix and uterus; Z86.73 Personal history of transient ischemic attack (TIA), and cerebral infarction without residual deficits; Z79.899 Other long term (current) drug therapy; Z79.4 Long term (current) use of insulin
CPT/HCPCS: 36415; 71045; 80053; 81001; 85025; 87077; 87086; 87186; 87804; 99284-25; P9612

== ENCOUNTER → 2020-03-21 | Outpatient (CLI) | payer MEDICARE, OTHER ==
[~2020-03-21] MED LIST changes: +ACET325 PO; +BENADRYL25 MG PO; +LISI20 PO; +Loratadine10 MG PO; +MILK OF MA400 MG/5 M PO; +OXYC5 PO; +POTCHL20ER PO; +TIZA4 PO
[2020-03-21 22:48] LABS: BASOPHILS ABSOLUTE AUTO 0.04 K/mm3 (0.00-0.23); BASOPHILS PERCENT AUTO 0 % (0-2); EOSINOPHILS ABSOLUTE AUTO 0.41 K/mm3 (0.00-0.68); EOSINOPHILS PERCENT AUTO 3 % (0-6); Hematocrit 38.6 % (33.0-51.0); Hemoglobin 12.9 g/dL (11.5-16.0); IMMATURE GRAN ABSOLUTE AUTO 0.07 K/mm3 (0.00-0.10); IMMATURE GRAN PERCENT AUTO 1 % (0-1); LYMPHOCYTES ABSOLUTE AUTO 2.82 K/mm3 (0.84-5.20); LYMPHOCYTES PERCENT AUTO 23 % (21-46); MONOCYTES ABSOLUTE AUTO 0.75 K/mm3 (0.16-1.47); MONOCYTES PERCENT AUTO 6 % (4-13); Mean Corpuscular HGB Conc 33.4 g/dL (31.5-36.5); Mean Corpuscular Volume 96 fL (80-100); Mean Platelet Volume 11.1 fL (9.1-12.4); NEUTROPHILS ABSOLUTE AUTO 8.32 K/mm3 (1.96-9.15); NEUTROPHILS PERCENT AUTO 67 % (41-73); Platelet Count 231 K/mm3 (150-400); RDW Coefficient Variation 12.6 % (11.7-14.2); RDW Standard Deviation 44.5 fL (35.1-46.3); Red Blood Cell Count 4.03 M/mm3 (3.80-5.20); White Blood Cell Count 12.41 K/mm3 (4.00-11.30)
[2020-03-21 23:00] LABS: Alanine Aminotransfer (ALT/SGP 16 U/L (12-78); Albumin, Blood 2.8 g/dL (3.4-5.0); Albumin/Globulin Ratio 0.6 (0.8-1.8); Alk Phos 74 U/L (50-136); Anion Gap 9 mmol/L (6-16); Aspartate Aminotrans (AST/SGOT 9 U/L (12-37); Bilirubin, Total 0.3 mg/dL (0.1-1.0); Blood Urea Nitrogen 35 mg/dL (8-24); Bun/Creatinine Ratio 41.6 (12.0-20.0); CO2, Blood 22 mmol/L (21-32); Calcium, Blood 9.1 mg/dL (8.5-10.1); Chloride, Blood 108 mmol/L (98-108); Creatinine, Blood 0.84 mg/dL (0.40-1.00); Globulin, Blood 4.5 g/dL (2.2-4.0); Glomerular Filtration Rate >60 (60-); Glucose, Blood 152 mg/dL (70-99); Potassium, Blood 4.7 mmol/L (3.5-5.5); Sodium, Blood 139 mmol/L (136-145); Total Protein, Blood 7.3 g/dL (6.4-8.2)
[2020-03-21 23:02] LABS: International Normalized Ratio 0.96; Prothrombin Time Results 10.3 Sec (9.7-11.5)
== END | disposition home or self-care (01) ==
LOC: EDSTATUS 11:07 → LAB UVN 21:00
DX: G93.41 Metabolic encephalopathy (principal)
CPT/HCPCS: 80053; 85025; 85610

== ENCOUNTER → 2020-09-14 | Outpatient (CLI) | payer MEDICARE, OTHER | END | disposition home or self-care (01) | LOC: LAB UVN 05:47 → EDSTATUS 09:46 | DX: E11.9 Type 2 diabetes mellitus without complications (principal) | CPT/HCPCS: 83036 ==

== ENCOUNTER → 2020-11-10 | Outpatient (CLI) | payer MEDICARE, OTHER ==
[2020-11-10 13:18] LABS: Source, Urine Catheter
[2020-11-10 14:04] LABS: Appearance, Urine Cloudy (Clear); Bilirubin, Urine Neg (Neg); Blood, Urine 2+ (Neg); Color, Urine Yellow (P-Yellow); Glucose Qualitative, Urine Neg (Neg); Ketones, Urine Neg (Neg); Leukocyte Esterase, Urine 3+ (Neg); Nitrite, Urine Neg (Neg); Protein, Urine 2+ (Neg); Urobilinogen, Urine NORM (Normal)
[2020-11-10 14:20] LABS: White Blood Cells, Urine TNTC /hpf (0-5)
[2020-11-10 14:21] LABS: Bacteria Mod /hpf; Squamous Epithelial Cells Rare /hpf (Few)
[2020-11-10 14:23] LABS: Triple Phosphate Crystals Mod /hpf
== END | disposition home or self-care (01) ==
LOC: LAB UVN 04:00
PROVIDERS: Family Medicine
DX: N39.0 Urinary tract infection, site not specified (principal); R82.90 Unspecified abnormal findings in urine
CPT/HCPCS: 81001; 87077; 87086; 87186

== ENCOUNTER → 2020-11-23 | Outpatient (CLI) | payer MEDICARE, OTHER ==
[2020-11-23 22:49] LABS: Bun/Creatinine Ratio 34.9 (12.0-20.0); Calcium, Blood 8.8 mg/dL (8.5-10.1); Creatinine, Blood 1.09 mg/dL (0.40-1.00); Potassium, Blood 4.8 mmol/L (3.5-5.5)
== END | disposition home or self-care (01) ==
LOC: EDSTATUS 11:43 → LAB UVN 20:30
PROVIDERS: Family Medicine
DX: Z51.81 Encounter for therapeutic drug level monitoring (principal); E11.9 Type 2 diabetes mellitus without complications; Z79.899 Other long term (current) drug therapy
CPT/HCPCS: 80048

== ENCOUNTER → 2021-01-17 | Outpatient (CLI) | payer MEDICARE, OTHER ==
[2021-01-17 05:45] LABS: Source, Urine Catheter
[2021-01-17 05:52] LABS: Appearance, Urine Clear (Clear); Bilirubin, Urine Neg (Neg); Blood, Urine Neg (Neg); Color, Urine Yellow (P-Yellow); Glucose Qualitative, Urine Neg (Neg); Ketones, Urine Neg (Neg); Leukocyte Esterase, Urine 3+ (Neg); Nitrite, Urine Neg (Neg); Protein, Urine Neg (Neg); Urobilinogen, Urine NORM (Normal)
[2021-01-17 06:16] LABS: Red Blood Cells, Urine 0-2 /hpf (0-2); Squamous Epithelial Cells Few /hpf (Few)
[2021-01-17 06:17] LABS: Bacteria Many /hpf
== END | disposition home or self-care (01) ==
LOC: LAB UVN 02:15 → EDSTATUS 13:13
PROVIDERS: Family Medicine
DX: N39.0 Urinary tract infection, site not specified (principal)
CPT/HCPCS: 81001; 87077; 87086; 87186

== ENCOUNTER → 2021-03-01 | Outpatient (CLI) | payer MEDICARE, OTHER | END | disposition home or self-care (01) | LOC: LAB UVN 05:59 → EDSTATUS 08:50 | DX: E11.9 Type 2 diabetes mellitus without complications (principal) | CPT/HCPCS: 83036 ==

== ENCOUNTER → 2021-05-26 | Outpatient (CLI) | payer MEDICARE, OTHER ==
[2021-05-26 17:50] LABS: Appearance, Urine Cloudy (Clear); Bilirubin, Urine Neg (Neg); Blood, Urine 3+ (Neg); Color, Urine Yellow (P-Yellow); Glucose Qualitative, Urine Neg (Neg); Ketones, Urine Neg (Neg); Leukocyte Esterase, Urine 3+ (Neg); Nitrite, Urine Neg (Neg); Protein, Urine 2+ (Neg); Urobilinogen, Urine 1+ (Normal)
[2021-05-26 18:06] LABS: White Blood Cells, Urine TNTC /hpf (0-5)
[2021-05-26 18:07] LABS: Bacteria Many /hpf; Squamous Epithelial Cells Mod /hpf (Few)
[2021-05-26 18:08] LABS: Amorphous Light (0-Heavy); Triple Phosphate Crystals Many /hpf
== END ==
LOC: EDSTATUS 13:32 → LAB UVN 16:24
PROVIDERS: Internal Medicine
DX: N39.0 Urinary tract infection, site not specified (principal)
CPT/HCPCS: 81001; 87077; 87086; 87186

== ENCOUNTER → 2021-07-17 | Outpatient (CLI) | payer MEDICARE, OTHER ==
[2021-07-17 14:22] LABS: Hemoglobin 11.8 g/dL (11.5-16.0); Mean Corpuscular HGB 32.8 pg (26.0-34.0); Mean Corpuscular HGB Conc 34.7 g/dL (31.5-36.5); Mean Corpuscular Volume 94 fL (80-100); Mean Platelet Volume 10.7 fL (9.1-12.4); Platelet Count 210 K/mm3 (150-400); RDW Coefficient Variation 11.8 % (11.7-14.2); RDW Standard Deviation 40.5 fL (35.1-46.3); White Blood Cell Count 8.85 K/mm3 (4.00-11.30)
== END | disposition home or self-care (01) ==
LOC: EDSTATUS 10:36 → LAB UVN 12:08
PROVIDERS: Internal Medicine
DX: N18.30 Chronic kidney disease, stage 3 unspecified (principal)
CPT/HCPCS: 85027

== ENCOUNTER → 2021-08-16 | Outpatient (CLI) | payer MEDICARE, OTHER | LOC: LAB UVN 13:00 → EDSTATUS 15:39 | DX: E11.9 Type 2 diabetes mellitus without complications (principal); Z79.4 Long term (current) use of insulin | CPT/HCPCS: 83036 ==

== ENCOUNTER → 2021-09-27 | Outpatient (CLI) | payer MEDICARE, OTHER ==
[2021-09-27 17:42] LABS: Hematocrit 35.1 % (33.0-51.0); Hemoglobin 12.4 g/dL (11.5-16.0); Mean Corpuscular HGB 32.1 pg (26.0-34.0); Mean Corpuscular HGB Conc 35.3 g/dL (31.5-36.5); Mean Corpuscular Volume 91 fL (80-100); Mean Platelet Volume 10.9 fL (9.1-12.4); Platelet Count 180 K/mm3 (150-400); RDW Coefficient Variation 12.3 % (11.7-14.2); RDW Standard Deviation 40.7 fL (35.1-46.3); Red Blood Cell Count 3.86 M/mm3 (3.80-5.20); White Blood Cell Count 7.65 K/mm3 (4.00-11.30)
[2021-09-27 20:00] LABS: Anion Gap 5 mmol/L (6-16); Blood Urea Nitrogen 19 mg/dL (8-24); Bun/Creatinine Ratio 26.2 (12.0-20.0); CO2, Blood 29 mmol/L (21-32); Calcium, Blood 9.2 mg/dL (8.5-10.1); Chloride, Blood 107 mmol/L (98-108); Creatinine, Blood 0.73 mg/dL (0.40-1.00); Glomerular Filtration Rate >60 (60-); Glucose, Blood 190 mg/dL (70-99); Potassium, Blood 3.1 mmol/L (3.5-5.5); Sodium, Blood 141 mmol/L (136-145)
[2021-09-27 22:17] LABS: Bilirubin, Urine Neg (Neg); Blood, Urine 5+ (Neg); Glucose Qualitative, Urine Neg (Neg); Ketones, Urine Neg (Neg); Leukocyte Esterase, Urine 2+ (Neg); Nitrite, Urine Neg (Neg); Protein, Urine 4+ (Neg); Urobilinogen, Urine NORM (Normal)
[2021-09-27 22:23] LABS: Appearance, Urine Turbid (Clear); Color, Urine Red (P-Yellow)
[2021-09-27 22:24] LABS: Amorphous Heavy (0-Heavy); Bacteria Mod /hpf; Mucus Heavy (0-Heavy); Red Blood Cells, Urine TNTC /hpf (0-2); Squamous Epithelial Cells Not Seen /hpf (Few)
== END | disposition home or self-care (01) ==
LOC: EDSTATUS 13:07 → LAB UVN 16:49
PROVIDERS: Internal Medicine
DX: E11.9 Type 2 diabetes mellitus without complications (principal); I10 Essential (primary) hypertension; N39.0 Urinary tract infection, site not specified
CPT/HCPCS: 80048; 81001; 85027; 87077; 87086; 87186

== ENCOUNTER → 2021-10-02 | Outpatient (CLI) | payer MEDICARE, OTHER ==
[2021-10-02 06:41] LABS: Anion Gap 6 mmol/L (6-16); Blood Urea Nitrogen 17 mg/dL (8-24); Bun/Creatinine Ratio 23.6 (12.0-20.0); CO2, Blood 27 mmol/L (21-32); Calcium, Blood 9.2 mg/dL (8.5-10.1); Chloride, Blood 111 mmol/L (98-108); Creatinine, Blood 0.72 mg/dL (0.40-1.00); Glomerular Filtration Rate >60 (60-); Glucose, Blood 84 mg/dL (70-99); Potassium, Blood 4.1 mmol/L (3.5-5.5); Sodium, Blood 144 mmol/L (136-145)
== END | disposition home or self-care (01) ==
LOC: LAB UVN 06:08 → EDSTATUS 13:08
PROVIDERS: Internal Medicine
DX: I63.40 Cerebral infarction due to embolism of unspecified cerebral artery (principal); E11.22 Type 2 diabetes mellitus with diabetic chronic kidney disease; N18.30 Chronic kidney disease, stage 3 unspecified
CPT/HCPCS: 80048

== ENCOUNTER 2021-12-10 16:17 | Emergency (ER) | payer MEDICARE, OTHER ==
[~2021-12-10] VITALS: Ht 162.6 cm; Wt 72.6 kg
== END 2021-12-10 20:00 | disposition home or self-care (01) ==
LOC: ER 16:17
DX: F41.9 Anxiety disorder, unspecified (principal); F03.90 Unspecified dementia, unspecified severity, without behavioral disturbance, psychotic disturbance, mood disturbance, and anxiety; E11.9 Type 2 diabetes mellitus without complications; I10 Essential (primary) hypertension; Z79.4 Long term (current) use of insulin; Z79.899 Other long term (current) drug therapy
CPT/HCPCS: 82947; 96372; 99283-25

== ENCOUNTER → 2021-12-19 | Outpatient (CLI) | payer MEDICARE, OTHER ==
[2021-12-19 18:00] LABS: Source, Urine Foley catheter
[2021-12-19 18:58] LABS: Bilirubin, Urine Neg (Neg); Blood, Urine 5+ (Neg); Glucose Qualitative, Urine Neg (Neg); Ketones, Urine Neg (Neg); Leukocyte Esterase, Urine Neg (Neg); Nitrite, Urine Neg (Neg); Protein, Urine 2+ (Neg); Specific Gravity, Urine 1.015 (1.003-1.022); Urobilinogen, Urine NORM (Normal)
[2021-12-19 19:11] LABS: Appearance, Urine Hazy (Clear); Color, Urine Pale Yellow (P-Yellow); White Blood Cells, Urine 0-2 /hpf (0-5)
[2021-12-19 19:12] LABS: Bacteria Few /hpf; Squamous Epithelial Cells Rare /hpf (Few)
== END | disposition home or self-care (01) ==
LOC: EDSTATUS 10:31 → LAB UVN 17:59
PROVIDERS: Internal Medicine
DX: N39.0 Urinary tract infection, site not specified (principal)
CPT/HCPCS: 81001; 87086

== ENCOUNTER → 2022-02-01 | Outpatient (CLI) | payer MEDICARE, OTHER | END | disposition home or self-care (01) | LOC: LAB UVN 04:00 → EDSTATUS 13:20 | DX: E11.9 Type 2 diabetes mellitus without complications (principal) | CPT/HCPCS: 83036 ==

== ENCOUNTER → 2022-06-26 | Outpatient (CLI) | payer MEDICARE, OTHER ==
[2022-06-26 19:30] LABS: Hematocrit 40.5 % (33.0-51.0); Hemoglobin 13.9 g/dL (11.5-16.0); Mean Corpuscular HGB 32.5 pg (26.0-34.0); Mean Corpuscular HGB Conc 34.3 g/dL (31.5-36.5); Mean Corpuscular Volume 95 fL (80-100); Mean Platelet Volume 10.8 fL (9.1-12.4); Platelet Count 265 K/mm3 (150-400); RDW Coefficient Variation 12.1 % (11.7-14.2); RDW Standard Deviation 41.9 fL (35.1-46.3); Red Blood Cell Count 4.28 M/mm3 (3.80-5.20); White Blood Cell Count 14.01 K/mm3 (4.00-11.30)
[2022-06-26 19:54] LABS: Calcium, Blood 9.1 mg/dL (8.5-10.1); Creatinine, Blood 1.09 mg/dL (0.40-1.00); Potassium, Blood 3.1 mmol/L (3.5-5.5)
== END ==
LOC: EDSTATUS 10:20 → LAB UVN 19:23
PROVIDERS: Internal Medicine
DX: I63.40 Cerebral infarction due to embolism of unspecified cerebral artery (principal); E11.9 Type 2 diabetes mellitus without complications; R13.12 Dysphagia, oropharyngeal phase
CPT/HCPCS: 80048; 85027